=== PATIENT | male | born 1955 | race Caucasian/White ===

== ENCOUNTER 2022-01-24 12:12 | Emergency (ER) | payer OTHER, SELFPAY ==
[2022-01-24 12:13] VITALS: BP 160/97; PULSE 81; RESP 17; TEMP 36; O2SAT 99; BMI 27.7
[2022-01-24 13:18] LABS: Absolute Lymphocyte Count 0.87 X10^3/uL (0.83-4.51); Basophil# 0.03 X10^3/uL; Basophil% 0.3 % (0-1); Eosinophil# 0.05 X10^3/uL; Eosinophils% 0.5 % (0-5); Hemoglobin 15.7 g/dL (13.0-16.5); Lymphocyte # 0.87 X10^3/ul (0.83-4.51); Lymphocyte % 8.2 % (19-41); Mean Corp Hgb Conc 32.7 g/dL (32-36); Mean Corpuscular Hgb 29.7 pg (27.0-32.0); Mean Corpuscular Volume 90.9 fL (80-94); Monocyte% 5.7 % (0-10); NRBC Flagged by Analyzer 0 % (0-5); Neutrophil # 9.02 X10^3/uL (2.7-7.7); Neutrophil % 84.9 % (47-70); Platelet Count 163 K/mm3 (150-450); Red Blood Count 5.28 M/mm3 (4.6-6.2); White Blood Count 10.6 K/mm3 (4.4-11.0)
[2022-01-24 13:32] LABS: Anion Gap 4 (5-15); BUN 15 mg/dL (7-18); BUN/Creat Ratio 13.6 RATIO (10-20); Calcium,Total 9.1 mg/dL (8.5-10.1); Chloride 110 mmol/L (98-107); EST Glomerular Filtration Rate 71 mL/min (>60); Est Glom Filt Rate - Afr Amer 87 mL/min (>60); Estimated Creatinine Clearance 70.05 ml/min; Glucose 115 mg/dL (74-106); Sodium Level 141 mmol/L (136-145)
--- NOTE | 2022-01-24 14:15 | ED.VIS.GI ---
HPI HPI - GI History of Present Illness Chief Complaint: Abd Pain Informant: patient Abdominal Pain/Flank Pain Onset: Today Context: Sudden Onset Timing: Continuous Quality: Aching Location: LLQ Worsened by: Nothing Relieved by: Nothing Nausea/Vomiting/Emesis GI Symptom: Positive for Nausea and Vomiting Quality: Negative for Blood streaks, Coffee ground or Hematemesis Diarrhea/Melena/Hematochezia GI Symptom: Negative for Diarrhea, Melena or Hematochezia Associated Symptoms Associated Symptoms: Negative for Dysuria, Frequency or Hematuria Narrative Narrative: Patient presents with abdominal pain that began today. Patient states the pain is over the left side of his abdomen. Patient states it began rather suddenly. Patient describes the pain as aching. Patient states it is mainly over the left lower quadrant. Patient admits to some nausea and vomiting. Patient denies any hematemesis or coffee-ground emesis. Patient denies any diarrhea, melena, or hematochezia. Patient denies any dysuria, frequency, or hematuria. Patient states he has a history of inguinal hernias and has had bilateral inguinal herniorrhaphies. [facility] Medical History (Updated 01/24/22 @ 16:[address] Cedric Patino DO) TIA (transient ischemic attack) Home Medications hydrocodone-acetaminophen 5-325mg 5mg-325mg 1 tab PO Q6H PRN PRN Pain 3 days #10 TABLETS 01/24/22 [Rx Last Taken Unknown] Allergy/AdvReac Type Severity Reaction Status Date / Time No Known Allergies Allergy Verified 01/24/22 12:12 Surgical History (Updated 01/24/22 @ 14:[address] Cedric Patino DO) Hx of inguinal herniorrhaphy Social History Smoking Status: Never smoker ROS ROS ED Constitutional Constitutional ED: Denies chills or fever(s) Eyes Eyes: Denies blurry vision or change in vision ENT ENT ED: Denies rhinorrhea or sore throat Cardiovascular Cardiovascular: Denies chest pain or palpitations Respiratory/Chest Respiratory/Chest: Denies cough or dyspnea Gastrointestinal Gastrointestinal: Reports abdominal pain, nausea and vomiting Genitourinary Genitourinary ED: Denies dysuria or hematuria Musculoskeletal Musculoskeletal: Denies back pain or neck pain Integumentary Denies abscess or rash Neurologic Neurologic: Denies headache(s) or weakness Allergic/Immunologic Allergic/Immunologic ED: Denies mouth swelling or urticaria EXAM Physical Exam Const Vital Signs: 01/24/22 12:13 01/24/22 15:07 Temperature 96.8 F L Temperature Source Temporal Pulse Rate 81 88 Respiratory Rate 17 14 Blood Pressure 160/97 H 134/78 H Blood Pressure Mean 118 96 Pulse Ox 99 97 Oxygen Delivery Method Room Air Room Air Positive well nourished and well developed General Appearance ED: well developed HEENT Reports moist mucous membranes Neck supple and no JVD Resp normal respiratory effort and clear to auscultation bilaterally Cardio regular rate, regular rhythm and no murmurs GI normal to inspection, nondistended, normoactive bowel sounds Palpation: soft and tender LLQ and LUQ Back/Spine no CVA tenderness Extremity normal to inspection General Extremety ED: Negative for edema or tenderness General Extremity: Negative for edema Neuro oriented x3, CN's II-XII intact bilaterally and no sensory deficits noted Sensorium / Orientation: alert Motor Exam: strength 5/5 throughout Psych mental status grossly normal Skin no rashes or lesions noted MDM MDM MDM Narrative Medical decision making narrative: Patient was given IV fluids, morphine, and Zofran. CBC was within normal limits. Basic metabolic profile was essentially within normal limits. Urinalysis shows a leukocyte esterases of 25 with 10-25 red blood cells and 10-25 white blood cells. There is 1+ bacteria. Urine culture was ordered. CT scan of the abdomen pelvis was obtained. There is a 3.9 mm calculus at the ureteropelvic junction with left hydronephrosis. This was interpreted by the radiologist and reviewed by myself. Patient is feeling better on reevaluation. Patient was given a prescription for [place]. Patient was instructed to drink plenty of fluids. Patient was given urology follow-up. Patient was instructed return if worse in any way. Patient understood and was agreeable with the plan. All questions were answered. Lab Data Attestation: I reviewed the patient's lab results. Labs: Laboratory Results - last 24 hr 01/24/22 01/24/22 01/24/22 13:10 13:10 14:18 WBC 10.6 RBC 5.28 Hgb 15.7 Hct 48.0 MCV 90.9 MCH 29.7 MCHC 32.7 RDW Std Deviation 47.0 H RDW Coeff of [place] 14.0 Plt Count 163 MPV 11.0 Immature Gran % (Auto) 0.400 Neut % (Auto) 84.9 H Lymph % (Auto) 8.2 L [place] % (Auto) 5.7 Eos % (Auto) 0.5 Baso % (Auto) 0.3 Absolute Neuts (auto) 9.0 H Absolute Lymphs (auto) 0.87 Nucleated RBC % 0 Sodium 141 Potassium 4.0 Chloride 110 H Carbon Dioxide 27.0 Anion Gap 4 L BUN 15 Creatinine 1.10 Estim Creat Clear Calc 70.05 Est GFR (MDRD) Af Amer 87 Est GFR (MDRD) Non-Af 71 BUN/Creatinine Ratio 13.6 Glucose 115 H Calcium 9.1 Urine Color Yellow Urine Clarity Cloudy Urine pH 6.0 Ur Specific [place] 1.025 Urine Protein 100 H Urine Glucose (UA) Normal Urine Ketones 15 H Urine Occult Blood 250 H Urine Nitrite Negative Urine Bilirubin Negative Urine Urobilinogen Normal Ur Leukocyte Esterase 25 H Urine RBC 10-25 SEEN Urine WBC 10-25 SEEN Ur Squamous Epith Cells 0 SEEN Urine Bacteria 1+ Urine Mucus 0 SEEN Radiography Diagnostic Testing: Clinical Impression(s) from Imaging Studies Abdomen/Pelvis CT 01/24/22 14:19 IMPRESSION: Mild degree of left hydronephrosis due to a 3.9 mm calculus at the ureteropelvic junction. Left perinephric and periureteric stranding. Nonobstructive calculus in the left kidney. Electronically Signed: Mau Bautista MD at 15:15 EDT , Discharge Plan Triage Chief Complaint: Abd Pain ED Provider: Cedric Patino Dx/Rx/DC Orders Clinical Impression: Calculus of proximal left ureter, Acute left flank pain Instructions: ED Kidney Stone w/ Colic Prescriptions: New hydrocodone-acetaminophen [hydrocodone-acetaminophen] 1 TABLET tablet 1 tab PO Q6H PRN PRN (Reason: Pain) 3 Days Qty: 10 0RF Primary Care Provider: Fortino Kate Referrals: Torin Ortega MD [STAFF PHYSICIAN] - 3-5 Days Fortino Kate MD [Primary Care Provider] - 3-5 Days Disposition Disposition: Home, Self Care
--- NOTE | 2022-01-24 14:19 | CT_ITS ---
STUDY: CT ABDOMEN AND PELVIS WITHOUT CONTRAST REASON FOR EXAM: Male, 66 years old. Left lower quadrant pain with nausea and vomiting. RADIATION DOSAGE (If Supplied By Facility): CTDIvol = ( 9.45 ) mGy, DLP = ( 613.94 ) mGycm TECHNIQUE: Transaxial images were obtained from the dome of the diaphragm to the symphysis pubis without oral contrast, and without intravenous contrast. Sagittal and coronal images were reconstructed. Individualized dose optimization techniques were used for this CT. COMPARISON: None. FINDINGS: Minimal degree of dependent bibasilar atelectasis. The visualized portions of the heart are within normal limits. Normal liver. Normal gallbladder and extrahepatic biliary system. Normal spleen. Normal pancreas. Normal bilateral adrenal glands. Normal right kidney. There is engorgement of the left kidney. Mild degree of a left perinephric and periureteric stranding due to a 3.9 mm calculus at the ureteral pelvic junction. Mild degree of left hydronephrosis. There is also evidence of a 4.5 mm nonobstructive calculus in the midpole calyx of the left kidney. Normal visualized stomach. Normal small intestine. There are scattered colonic diverticula consistent with diverticulosis. The appendix is visualized and appears normal. There is diffuse atherosclerotic calcification of the abdominal aorta, without a demonstrated aneurysm. Normal inferior vena cava. Normal retroperitoneum. Normal urinary bladder. There is a right-sided inguinal hernia containing adipose tissue. There are mild degenerative changes of the visualized lumbar spine. CT/Abdomen/Pelvis without Cont IMPRESSION: Mild degree of left hydronephrosis due to a 3.9 mm calculus at the ureteropelvic junction. Left perinephric and periureteric stranding. Nonobstructive calculus in the left kidney. Electronically Signed: Mau Bautista MD at 15:15 EDT ,
[2022-01-24 14:23] LABS: Mucous, Urine 0 SEEN /hpf (<or=2+); Squamous Epithelial Cells - UA 0 SEEN /hpf (0-5)
[2022-01-24 14:24] LABS: Color, Urine Yellow (Yellow); Glucose, Dipstick Normal (Normal); Ketone-Dipstick 15 mg/dl (Negative); Leukocyte Esterase-Dipstick 25 /ul (Negative); Nitrite-Dipstick Negative (Negative); Occult Blood-Urine 250 /ul (Negative); Protein-Dipstick 100 mg/dl (Negative); Specific Gravity, Urine 1.025 (1.002-1.030); Urine Bilirubin Dipstick Negative (Negative); Urine Clarity Cloudy (Clear); Urine Urobilinogen Normal (Normal)
[2022-01-24] MEDS: Ondansetron 4 MG/2 ML Vial IV (14:25)
[2022-01-24] MEDS: 0.9% Normal Saline 1,000 ML 1000 ML IV (14:25)
[2022-01-24] MEDS: Morphine 4 MG/ML Syringe IV (14:26)
[2022-01-24 14:30] LABS: White Blood Cells 10-25 SEEN /hpf (0-5)
[2022-01-24 14:31] LABS: Bacteria 1+ /hpf (None Seen); Red Blood Cells-Urine 10-25 SEEN /hpf (0-5)
[2022-01-24 15:07] VITALS: BP 134/78; PULSE 88; RESP 14; O2SAT 97
[2022-01-24 16:30] VITALS: BP 124/78; PULSE 88; RESP 14; TEMP 37.2; O2SAT 100
== END 2022-01-24 16:33 | disposition home or self-care (01) ==
PROVIDERS: Emergency Provider Emergency Medicine; PCP Family Medicine; Visit Provider Emergency Medicine
DX: N13.2 Hydronephrosis with renal and ureteral calculous obstruction (principal); Z79.899 Other long term (current) drug therapy; Z86.73 Personal history of transient ischemic attack (TIA), and cerebral infarction without residual deficits
CPT/HCPCS: 74176; 80048; 81001; 85025; 96361; 96374; 96375; 99283; J7030; J2405

== ENCOUNTER 2022-01-28 12:55 | Emergency (ER) | payer OTHER, SELFPAY ==
[2022-01-28 12:56] VITALS: BP 164/87; PULSE 59; RESP 18; TEMP 36.7; O2SAT 95; BMI 27.8
--- NOTE | 2022-01-28 13:31 | EDS_ITS ---
HPI HPI - GI History of Present Illness Chief Complaint: Flank Pain Informant: patient Abdominal Pain/Flank Pain Onset: Days (4) Context: Sudden Onset Timing: Continuous and Waxes and wanes Quality: Aching Location: Left Flank Current Severity: Mild Maximum Severity: Severe Worsened by: Nothing Relieved by: Nothing Nausea/Vomiting/Emesis GI Symptom: Positive for Nausea; Negative for Vomiting Diarrhea/Melena/Hematochezia GI Symptom: Negative for Diarrhea, Melena or Hematochezia Associated Symptoms Associated Symptoms: Negative for Dysuria, Frequency, Hematuria or Urgency Narrative Narrative: Patient diagnosed with a kidney stone earlier this week, he was prescribed hydrocodone which is helping temporarily when he takes it, he still has some, he was given urology follow-up, he states he could not get in and he made an appointment with a [facility] urologist after the weekend on Monday, today is Monday, he is here because the pain is still present. He has no new symptoms. [facility] Medical History (Updated 01/28/22 @ 14:[address] Fabio Clements MD) TIA (transient ischemic attack) Home Medications hydrocodone-acetaminophen 5-325mg 5mg-325mg 1 tab PO Q6H PRN PRN Pain 3 days #10 TABLETS 01/28/22 [Rx Last Taken Unknown] ondansetron 4 mg disintegrating tablet 8 mg PO Q8H PRN PRN Nausea #20 tabs 01/28/22 [Rx Last Taken Unknown] tamsulosin 0.4 mg capsule (Flomax) 0.4 mg PO DAILY #7 caps 01/28/22 [Rx Last Taken Unknown] Allergy/AdvReac Type Severity Reaction Status Date / Time No Known Allergies Allergy Verified 01/28/22 12:55 Surgical History (Updated 01/24/22 @ 14:[address] Cedric Patino DO) Hx of inguinal herniorrhaphy Social History Smoking Status: Never smoker ROS ROS ED Constitutional Constitutional ED: Denies chills or fever(s) Eyes Eyes: Denies change in vision or diplopia ENT ENT ED: Denies rhinorrhea or sore throat Cardiovascular Cardiovascular: Denies chest pain or palpitations Respiratory/Chest Respiratory/Chest: Denies cough or dyspnea Gastrointestinal Gastrointestinal: Reports abdominal pain and nausea; Denies diarrhea or vomiting Genitourinary Genitourinary ED: Denies dysuria or hematuria Musculoskeletal Musculoskeletal: Reports back pain; Denies neck pain Integumentary Denies abscess or rash Neurologic Neurologic: Denies headache(s), paresthesias or weakness Psychiatric Psychiatric: Denies anxiety or suicidal thoughts EXAM Physical Exam Const Vital Signs: 01/28/22 12:56 Temperature 98.0 F Temperature Source Temporal Pulse Rate 59 L Respiratory Rate 18 Blood Pressure 164/87 H Blood Pressure Mean 112 Pulse Ox 95 Oxygen Delivery Method Room Air Positive well nourished and well developed General Appearance ED: well developed and NAD HEENT Reports moist mucous membranes normocephalic and atraumatic Eyes PERRL and EOMs intact bilaterally Neck full ROM and supple Resp normal respiratory effort and clear to auscultation bilaterally Cardio regular rate, regular rhythm and no murmurs GI non-tender and non-distended Auscultation: normoactive bowel sounds Palpation: soft Back/Spine General Back: CVA tenderness left (mild) and other FROM Extremity normal to inspection General Extremety ED: Negative for edema, pulses abnormal or tenderness General Extremity: Negative for edema or pulses abnormal Neuro oriented x3, CN's II-XII intact bilaterally and no sensory deficits noted Sensorium / Orientation: awake and alert Motor Exam: strength 5/5 throughout Skin no rashes or lesions noted and no wounds MDM MDM MDM Narrative Medical decision making narrative: She has a 3.9 mm UVJ stone on the left. There is a 4.5 nonobstructing stone in the left kidney. Expectant management is indicated as I discussed with the patient, along with symptom control until it passes which will likely be without the need for a procedure at this size. I am willing to start him on Flomax given that it is a UVJ stone to see if that helps sooner but as I discussed with him there is no guarantee. We checked a urine here and gave him pain medications. He feels much better on reevaluation, urine shows no signs of infection. We will also give him a refill of pain medication to fill when he is out, as well as something for nausea. Lab Data Attestation: I reviewed the patient's lab results. Labs: Laboratory Results - last 24 hr 01/28/22 13:50 Urine Color Yellow Urine Clarity Clear Urine pH 5.0 Ur Specific [place] 1.020 Urine Protein 30 H Urine Glucose (UA) Normal Urine Ketones 50 H Urine Occult Blood 250 H Urine Nitrite Negative Urine Bilirubin Negative Urine Urobilinogen Normal Ur Leukocyte Esterase 25 H Urine RBC 10-25 SEEN Urine WBC 0-5 SEEN Ur Squamous Epith Cells 0 SEEN Urine Bacteria 0 SEEN Urine Mucus 0 SEEN Discharge Plan Triage Chief Complaint: Flank Pain ED Provider: Fabio Clements Dx/Rx/DC Orders Clinical Impression: Renal colic on left side, Ureterolithiasis Instructions: ED Kidney Stone w/ Colic Prescriptions: New ondansetron [ondansetron] 4 mg tablet,disintegrating 8 mg PO Q8H PRN PRN (Reason: Nausea) Qty: 20 0RF tamsulosin [Flomax] 0.4 mg capsule 0.4 mg PO DAILY Qty: 7 0RF Continued hydrocodone-acetaminophen 1 TABLET tablet 1 tab PO Q6H PRN PRN (Reason: Pain) 3 Days Qty: 10 0RF Rx Instructions: from 01/24. Primary Care Provider: Fortino Kate Referrals: Fortino Kate MD [Primary Care Provider] - Keep Radha appointment (And/or your urologist) Activity Restrictions/Additional Instructions: Strain all of your urine. If you catch the stone, stop taking the Flomax. Disposition Disposition: Home, Self Care
[2022-01-28] MEDS: Ketorolac 15 MG/ML Vial IV (13:34)
[2022-01-28] MEDS: Morphine 4 MG/ML Syringe IV (13:35)
[2022-01-28 13:55] LABS: Bacteria 0 SEEN /hpf (None Seen); Mucous, Urine 0 SEEN /hpf (<or=2+); Squamous Epithelial Cells - UA 0 SEEN /hpf (0-5)
[2022-01-28 13:56] LABS: Color, Urine Yellow (Yellow); Glucose, Dipstick Normal (Normal); Ketone-Dipstick 50 mg/dl (Negative); Leukocyte Esterase-Dipstick 25 /ul (Negative); Nitrite-Dipstick Negative (Negative); Occult Blood-Urine 250 /ul (Negative); Protein-Dipstick 30 mg/dl (Negative); Urine Bilirubin Dipstick Negative (Negative); Urine Clarity Clear (Clear); Urine Urobilinogen Normal (Normal)
[2022-01-28 14:03] LABS: Red Blood Cells-Urine 10-25 SEEN /hpf (0-5); White Blood Cells 0-5 SEEN /hpf (0-5)
[2022-01-28 14:32] VITALS: RESP 16
== END 2022-01-28 14:48 | disposition home or self-care (01) ==
PROVIDERS: Emergency Provider Emergency Medicine; PCP Family Medicine; Visit Provider Emergency Medicine
DX: N20.2 Calculus of kidney with calculus of ureter (principal); Z86.73 Personal history of transient ischemic attack (TIA), and cerebral infarction without residual deficits
CPT/HCPCS: 81001; 96374; 96375; 99283; J7030; A4216

== ENCOUNTER 2023-09-16 14:30 | Emergency (ER) | payer MEDICARE, SELFPAY ==
[2023-09-16 14:32] VITALS: BP 152/94; PULSE 59; RESP 18; TEMP 35.7; O2SAT 94; BMI 27.6
--- NOTE | 2023-09-16 14:45 | ED.VIS.DYS ---
HPI History of Present Illness Chief Complaint: Shortness of Breath Detail of Chief Complaint: Abrupt onset of shortness of breath 2 hours prior to presentation Informant: patient and spouse/S.O. Onset/Context/Timing Onset: Hours (2) and Weeks (Intermittent productive cough for the past 3 weeks) Context: sudden Timing: Continuous Quality: Positive for Dyspnea on exertion and Wheezing; Negative for Orthopnea or PND Current Severity: Mild Maximum Severity: Moderate Worsened by: Exertion Relieved by: Nothing Associated Symptoms cough, rhinorrhea and clear sputum; Negative for post nasal drip, ear pain, fever, sore throat, subjective, chills or sweats Chest Pain: Positive for None Narrative Narrative: Patient is a 68-year-old male with benign hyper aplasia of the prostate on Flomax who presents with abrupt undershoot of shortness of breath started 2 hours prior to arrival. Patient had a cough for the past 3 weeks. The cough has been intermittently productive of clear sputum. He denies headache. He denies visual, ocular auditory symptoms. He denies fever or chills. He denies history of VTE. He has no risk factors for VTE. He denies leg pain, swelling or discoloration. He denies abdominal pain, nausea, vomiting or diarrhea. Patient is a smoker of 1 pack/day. He has no history of COPD. He is on Flomax otherwise on no other medication. He did not have history of asthma as a child. PE Risk Factors: Negative for Cancer, OCP + Smoking + > 35, Prior DVT or PE, Recent immobilization, Recent surgery or Recent travel Prior similar symptoms: No Recent Illness/Hospitalization: No [facility], [facility] Medical History TIA (transient ischemic attack) Home Medications aspirin 81 mg tablet,delayed release (Adult Aspirin Regimen) 81 mg PO DAILY 09/16/23 [History Last Taken Unknown] atorvastatin 80 mg tablet 80 mg PO DAILY 09/16/23 [History Last Taken Unknown] doxycycline monohydrate 100 mg capsule 100 mg PO BID #10 CAPSULES 09/16/23 [Rx Last Taken Unknown] prednisone 20 mg tablet 60 mg (3 x 20 mg) PO DAILY #12 TABLETS 09/16/23 [Rx Last Taken Unknown] Allergy/AdvReac Type Severity Reaction Status Date / Time No Known Allergies Allergy Verified 09/16/23 14:32 Surgical History Hx of inguinal herniorrhaphy Social History (Updated 09/16/23 @ 14:[address] Graham Alves MD) household members: spouse Smoking Status: Current every day smoker tobacco type: cigarettes substance use type: does not use ROS ROS ED Constitutional Constitutional ED: Denies chills, fever(s), sweats or weight loss Eyes Eyes: Denies blurry vision, change in vision or diplopia ENT ENT ED: Denies ear pain, rhinorrhea or sore throat Cardiovascular Cardiovascular: Denies chest pain, orthopnea, palpitations, paroxysmal nocturnal dyspnea or racing heartbeat Respiratory/Chest Respiratory/Chest: Reports cough, dyspnea, dyspnea on exertion and sputum; Denies orthopnea or paroxysmal nocturnal dyspnea Gastrointestinal Gastrointestinal: Denies abdominal pain, constipation, diarrhea, melena, nausea or vomiting Neurologic Neurologic: Denies headache(s), paresthesias or weakness Psychiatric Psychiatric: Denies anxiety Endocrine Endocrinology: Denies cold intolerance or heat intolerance Hematologic/Lymphatic Hematologic/Lymphatic: Denies easy bleeding or easy bruising EXAM Physical Exam Const Vital Signs: 09/16/23 14:32 09/16/23 15:13 09/16/23 15:15 Temperature 96.2 F L Temperature Source Temporal Pulse Rate 59 L 61 Respiratory Rate 18 18 Respiratory Effort Normal Non-Labored Respiratory Pattern Blood Pressure 152/94 H 143/79 H Blood Pressure Mean 113 100 Pulse Ox 94 93 Oxygen Delivery Method Room Air Room Air 09/16/23 15:28 09/16/23 15:56 Temperature Temperature Source Pulse Rate 57 L 65 Respiratory Rate 18 20 H Respiratory Effort Respiratory Pattern Normal Blood Pressure 131/71 H Blood Pressure Mean 91 Pulse Ox 92 Oxygen Delivery Method Room Air Positive well nourished and well developed General Appearance ED: well developed and NAD HEENT Reports moist mucous membranes HEENT Narrative: Head is atraumatic normocephalic. Ears normal. Nares patent. Posterior pharynx is normal. Eyes PERRL and EOMs intact bilaterally General Eye ED: Negative for pale conjunctiva or scleral icterus Neck no lymphadenopathy, supple, no meningeal signs and no JVD Resp normal respiratory effort and No clear to auscultation bilaterally Resp Narrative: Patient is tachypneic. He has expiratory wheezing noted throughout. Wheezes are high-pitched. He has increased expiratory phase. Cardio regular rate, regular rhythm, S1 normal heart sound, S2 normal heart sound and no murmurs GI non-tender, non-distended and no masses Extremity normal to inspection Extremity Narrative: There is no asymmetry, swelling, discoloration, leg vein distention, palpable cords or tenderness along the distribution of the deep venous system. Neuro oriented x3 and CN's II-XII intact bilaterally [place] Coma Scale: document GCS findings Spontaneous Obeys Commands Oriented 15 Sensorium / Orientation: alert Psych mental status grossly normal Skin no wounds and skin turgor normal Lesions: no lesions Rashes: no rashes MDM MDM MDM Narrative Medical decision making narrative: With patient have a productive cough off-and-on for the past 3 weeks and respiratory symptoms were obtain chest x-ray to assess for pneumonia. Since patient is wheezing has history of smoking he was treated with Atrovent and albuterol. He also received 60 mg of prednisone p.o. History & Record Review Additional record(s) reviewed:: Prior outpatient record and Prior labs Radiography Chest X-Ray - ED: 2 View and Read by ED Physician (Independent reviewed interpreted by me as negative for acute findings. There are some mild chronic pulmonary changes noted. Lung parenchyma reveals no infiltrate or effusion. There is no pneumothorax. Cardiac silhouette size normal. Perihilar region normal. Osseous structures unremarkable. Th) Diagnostic Testing: Clinical Impression(s) from Imaging Studies Chest X-Ray 09/16/23 14:59 IMPRESSION: There are findings consistent with COPD. There is no evidence of acute chest disease. Electronically Signed: Jj Carney MD at 15:15 EST , Treatment and Re-Evaluation :: Patient was reevaluated at 1604. Patient is moving more air. He has minimal wheezing at this time. Plan is metered-dose inhaler. Will have respiratory instruct him how to use the inhaler and burst of prednisone. Because patient had a cough for [address] on antibiotic for atypical coverage. Discharge Plan Triage Chief Complaint: Shortness of Breath ED Provider: Graham Alves Dx/Rx/DC Orders Clinical Impression: Acute bronchospasm, Acute exacerbation of chronic obstructive pulmonary disease, Bronchitis Instructions: ED Bronchitis with Wheezing (Adult) Prescriptions: New prednisone 20 mg tablet 60 mg PO DAILY Qty: 12 0RF doxycycline monohydrate 100 mg capsule 100 mg PO BID Qty: 10 0RF No Action atorvastatin 80 mg tablet 80 mg PO DAILY Patient Comments: TAKE 1 TABLET BY MOUTH EVERY DAY aspirin [Adult Aspirin Regimen] 81 mg tablet,delayed release (DR/EC) 81 mg PO DAILY Primary Care Provider: Fortino Kate Referrals: Fortino Kate MD [Primary Care Provider] - 3-5 Days Activity Restrictions/Additional Instructions: 2 puffs of inhaler every 2-4 hours while awake for the next 3 to 5 days and every 4-6 hours as needed for shortness of breath or wheezing Take prednisone until gone Disposition Disposition: Home, Self Care
[2023-09-16] MEDS: Ipratropium/Albuterol Sulfate 3 ML AMPUL.NEB INHALATION (14:50)
--- NOTE | 2023-09-16 14:59 | RAD_ITS ---
STUDY: X-RAY CHEST REASON FOR EXAM: Male, 68 years old. Productive cough and wheezing TECHNIQUE: Frontal and lateral views of the chest. COMPARISON: None. FINDINGS: There is hyperinflation of the lungs consistent with chronic obstructive lung disease (COPD). No infiltrates. No effusions. There is no demonstrated pleural abnormality. Normal size heart. Normal mediastinum and kelly. Normal visualized pulmonary arteries. Normal visualized aortic arch and descending thoracic aorta. There are diffuse degenerative changes of the visualized thoracic spine. Normal visualized ribs, clavicles, and shoulders. There is no demonstrated abnormality of the visualized soft tissue structures of the upper abdomen. RAD/Chest PA and Lateral IMPRESSION: There are findings consistent with COPD. There is no evidence of acute chest disease. Electronically Signed: Jj Carney MD at 15:15 EST ,
[2023-09-16] MEDS: predniSONE 20 MG Tablet 60 MG PO (15:12)
[2023-09-16 15:13] VITALS: BP 143/79; PULSE 61; RESP 18; O2SAT 93
[2023-09-16 15:28] VITALS: PULSE 57; RESP 18
[2023-09-16] MEDS: Albuterol 2.5 MG/3 ML VIAL.NEB. INHALATION ×3 (15:28)
[2023-09-16 15:56] VITALS: BP 131/71; PULSE 65; RESP 20; O2SAT 92
[2023-09-16 16:13] VITALS: BP 129/68; PULSE 85; RESP 22; TEMP 36.6; O2SAT 92
[2023-09-16] MEDS: Albuterol Sulfate 8 gm Inhaler (60 puffs) 4 PUFF INHALATION (16:14)
--- OUTSIDE RECORDS SUMMARY | 2023-09-16 16:25 | XMS RPT_ITS | CCD ---
Author Name Unknown Address [address] [place] [address] Organization [facility] Care Team Providers Care Flare Maker Name Role Phone Maik Lion Unavailable Unavailable Maik Lion Unavailable Unavailable No Doctor Assigned, Nodr Unavailable Unavail able Myesha Ramirez MD Primary Care Provider Myesha Ramirez MD Primary Care Provider Myesha Ramirez MD Primary Care Provider Myesha Ramirez MD Primary Care Provider MYESHA RAMIREZ Attending MYESHA Garcia Primary Care Unavailable MYESHA RAMIREZ Primary Care Unavailable MYESHA RAMIREZ Referring Unavailable MYESHA RAMIREZ Primary Care Unavailable MYESHA RAMIREZ Attending Unavailable MYESHA RAMIREZ Primary Care Unavailable ANGIE HOLTD SHEILA Referring Unavailable MYESHA RAMIREZ Primary Care Unavailable SLEJEROME, KHALED LITD Attending Unavailable STALIN KHALED OKSANAOUChaparro Referring Unavailable MYESHA RAMIREZ Attending Unavailable MYESHA RAMIREZ Primary Care Unavailable MYESHA RAMIREZ Primary Care Unavailable MARIZA IVERSON Referring Unavailable MYESHA RAMIREZ Primary Care Unavailable MYESHA RAMIREZ Referring Unavailable MARIZA IVERSON Attending Unavailable MYESHA RAMIREZ Primary Care Unavailable MYESHA RAMIREZ Referring Unavailable Medications Current Medications Medication Drug Class(es) Dates Sig (Normalized) Sig (Original) cephalexin 500 mg oral capsule (4 sources) Cephalosporin Antibacterial Start: 05-07-2022 End: 05-14-2022 take 1 capsule by mouth twice daily cephALEXin (KEFLEX) 500 mg capsule Take 1 capsule by mouth twice daily for 7 days. 14 capsule 0 05/07/2022 05/14/2022 Active Completed/Discontinued Medications Medication Drug Class(es) Dates Sig (Normalized) Sig (Original) aspirin 81 mg chewable tablet (20 sources) Platelet Aggregation Inhibitor, Nonsteroidal Anti-inflammatory Drug Start: 05-18-2020 take 1 tablet by mouth once daily aspirin 81 mg chewable tablet Take 1 tablet by mouth once daily. 30 tablet 3 05/18/2020 Active Problems Active Problems Problem Classification Problem Date Documented Date Episodic/Chronic Abdominal pain (4 sources) Flank pain; Translations: [Unspecified abdominal pain] Episodic Aortic; peripheral; and visceral artery aneurysms (20 sources) Aortic root dilatation; Translations: [Thoracic aortic ectasia] Onset: 03-08-2021 Chronic Calculus of urinary tract (2 sources) Kidney stone; Translations: [Calculus of kidney] Episodic Disorders of lipid metabolism (20 sources) Dyslipidemia; Translations: [Hyperlipidemia, unspecified] Onset: 03-08-2021 Chronic Essential hypertension (20 sources) Essential hypertension; Translations: [Essential (primary) hypertension] Onset: 05-16-2020 Chronic Genitourinary symptoms and ill-defined conditions (3 sources) Dysuria; Translations: [Dysuria] Episodic Other connective tissue disease (1 source) Pain of bilateral hands; Translations: [Pain in right hand] 04-14-2023 Episodic Other ear and sense organ disorders (20 sources) Sensorineural hearing loss, unilateral, left ear, with unrestricted hearing on the contralateral side; Translations: [Sensorineural hearing loss, unilateral] Onset: 11-20-2017 11-20-2017 Chronic Other eye disorders (20 sources) Bilateral vitreous floaters; Translations: [Other vitreous opacities, bilateral] Onset: 06-28-2021 06-28-2021 Chronic Other non-traumatic joint disorders (1 source) Hip pain; Translations: [Pain in unspecified hip] Episodic Other non-traumatic joint disorders (1 source) Joint pain; Translations: [Pain in unspecified joint] 03-29-2023 Episodic Residual codes; unclassified (20 sources) Family history of malignant neoplasm of gastrointestinal tract; Translations: [Family history of malignant neoplasm of digestive organs] 03-19-2013 Episodic Rheumatoid arthritis and related disease (3 sources) Bilateral rheumatoid arthritis of hands; Translations: [Rheumatoid arthritis with rheumatoid factor of right hand without organ or systems involvement] Onset: 04-14-2023 04-14-2023 Chronic Transient cerebral ischemia (20 sources) Transient cerebral ischemia; Translations: [Transient cerebral ischemic attack, unspecified] Onset: 05-15-2020 05-22-2020 Chronic Past or Other Problems Problem Classification Problem Date Documented Date Episodic/Chronic Abdominal hernia (20 sources) Bilateral inguinal hernia; Translations: [Bilateral inguinal hernia, without obstruction or gangrene, not specified as recurrent] Onset: 08-05-2013 08-05-2013 Episodic Other and unspecified benign neoplasm (20 sources) Benign neoplasm of colon; Translations: [Benign neoplasm of colon, unspecified] Onset: 05-23-2013 05-23-2013 Episodic Other connective tissue disease (13 sources) Weakness of left leg; Translations: [Other symptoms and signs involving the musculoskeletal system] Onset: 06-04-2020 06-04-2020 Episodic Other connective tissue disease (13 sources) Weakness of left arm; Translations: [Other symptoms and signs involving the musculoskeletal system] Onset: 06-05-2020 06-05-2020 Episodic Other connective tissue disease (18 sources) Other symptoms and signs involving the musculoskeletal system; Translations: [Other musculoskeletal symptoms referable to limbs] Onset: 06-04-2020 06-04-2020 Episodic Other connective tissue disease (1 source) Pain in right hand; Translations: [Bilateral hand pain] Onset: 04-14-2023 Episodic Other connective tissue disease (1 source) Pain in left hand; Translations: [Bilateral hand pain] Onset: 04-14-2023 Episodic Other eye disorders (20 sources) Corneal epithelial defect; Translations: [Unspecified corneal membrane change] Onset: 12-31-2019 12-31-2019 Episodic Other eye disorders (20 sources) Corneal scar; Translations: [Unspecified corneal scar and opacity] Onset: 06-28-2021 06-28-2021 Episodic Other injuries and conditions due to external causes (20 sources) Foreign body in right cornea; Translations: [Foreign body in cornea, right eye, initial encounter] Onset: 12-12-2019 05-22-2020 Episodic Other injuries and conditions due to external causes (7 sources) Retained foreign body in eye; Translations: [Foreign body on external eye, part unspecified, right eye, initial encounter] Onset: 12-31-2019 12-31-2019 Episodic Other injuries and conditions due to external causes (15 sources) Foreign body of eye region; Translations: [Foreign body on external eye, part unspecified, right eye, initial encounter] Onset: 12-31-2019 12-31-2019 Episodic Other nervous system disorders (20 sources) Incoordination; Translations: [Unspecified lack of coordination] Onset: 06-05-2020 06-05-2020 Episodic Other non-traumatic joint disorders (1 source) Pain in unspecified joint; Translations: [Arthralgia, unspecified joint] Onset: 12-20-2022 Episodic Other non-traumatic joint disorders (1 source) Pain in unspecified hip; Translations: [Hip pain] Onset: 10-11-2022 Episodic Other screening for suspected conditions (not mental disorders or infectious disease) (2 sources) Abnormal results of kidney function studies; Translations: [Nonspecific abnormal results of function study of kidney] Onset: 12-20-2022 Episodic Other skin disorders (20 sources) Skin lesion; Translations: [Disorder of the skin and subcutaneous tissue, unspecified] Onset: 08-05-2013 08-05-2013 Episodic Residual codes; unclassified (20 sources) Tobacco use and exposure - finding; Translations: [Tobacco use] Onset: 12-04-2015 05-15-2020 Episodic Residual codes; unclassified (20 sources) Activity of daily living (ADL) alteration; Translations: [Other specified health status] Onset: 06-05-2020 06-05-2020 Episodic Results Test Name Value Interpretation Reference Range Facil ity Vital Signs Date Time Vital Sign Value Performing Clinician Reina mcdonald 04-14-2023 11:47-0400 Diastolic blood pressure 87 mm[Hg] Mariza Iverson MD Work Phone: [facility] 04-14-2023 11:47-0400 Heart rate 63 /min Mariza Iverson MD Work Phone: [facility] 04-14-2023 11:47-0400 Systolic blood pressure 132 mm[Hg] Mariza Iverson MD Work Phone: [facility] 04-14-2023 11:45-0400 Body height 180.3 cm Mariza Iverson MD Work Phone: [facility] 04-14-2023 11:45-0400 Body temperature 97.59 [degF] Mariza Iverson MD Work Phone: [facility] 04-14-2023 11:45-0400 Body weight 88.91 kg Mariza Iverson MD Work Phone: [facility] 10-11-2022 08:32-0400 Body weight 89.63 kg Myesha Ramirez MD Work Phone: [facility] 10-11-2022 08:32-0400 Diastolic blood pressure 78 mm[Hg] Myesha Ramirez MD Work Phone: [facility] 10-11-2022 08:32-0400 Heart rate 68 /min Myesha Ramirez MD Work Phone: [facility] 10-11-2022 08:32-0400 Respiratory rate 16 /min Myesha Ramirez MD Work Phone: [facility] 10-11-2022 08:32-0400 Systolic blood pressure 140 mm[Hg] Myesha Ramirez MD Work Phone: [facility] 08-11-2022 09:26-0500 Body temperature 98.4 [degF] Tasha Diazlane COMPONENTS ENGINEER.MACHINE HAND Work Phone: [facility] 08-11-2022 09:26-0500 Body weight 88.31 kg Tasha Loja COMPONENTS ENGINEER.MACHINE HAND Work Phone: [facility] 08-11-2022 09:26-0500 Diastolic blood pressure 89 mm[Hg] Tasha Phuong COMPONENTS ENGINEER.MACHINE HAND Work Phone: [facility] 08-11-2022 09:26-0500 Heart rate 59 /min Tasha Phuong COMPONENTS ENGINEER.MACHINE HAND Work Phone: [facility] 08-11-2022 09:26-0500 Respiratory rate 20 /min Tsaha Diazlane COMPONENTS ENGINEER.MACHINE HAND Work Phone: [facility] 08-11-2022 09:26-0500 SaO2% (BldA) [Mass fraction] 97 % Tasha Loja COMPONENTS ENGINEER.MACHINE HAND Work Phone: [facility] 08-11-2022 09:26-0500 Systolic blood pressure 143 mm[Hg] Tashakat Loja COMPONENTS ENGINEER.MACHINE HAND Work Phone: [facility] 05-10-2022 08:02-0400 Body weight 88.45 kg Fernando Daniel COMPONENTS ENGINEER.MACHINE HAND Work Phone: [facility] 05-10-2022 08:02-0400 Diastolic blood pressure 83 mm[Hg] Fernando Daniel COMPONENTS ENGINEER.MACHINE HAND Work Phone: [facility] 05-10-2022 08:02-0400 Heart rate 61 /min Fernando Daniel COMPONENTS ENGINEER.MACHINE HAND Work Phone: [facility] 05-10-2022 08:02-0400 Respiratory rate 16 /min Fernando Daniel COMPONENTS ENGINEER.MACHINE HAND Work Phone: [facility] 05-10-2022 08:02-0400 Systolic blood pressure 134 mm[Hg] Fernando Daniel COMPONENTS ENGINEER.MACHINE HAND Work Phone: [facility] 05-07-2022 10:54-0400 Body temperature 97.81 [degF] Graciela Lazo COMPONENTS ENGINEER.MACHINE HAND Work Phone: [facility] 05-07-2022 10:54-0400 Body weight 88.63 kg Graciela Lazo COMPONENTS ENGINEER.MACHINE HAND Work Phone: [facility] 05-07-2022 10:54-0400 Diastolic blood pressure 88 mm[Hg] Graciela Lazo COMPONENTS ENGINEER.MACHINE HAND Work Phone: [facility] 05-07-2022 10:54-0400 Heart rate 71 /min Graciela Lazo COMPONENTS ENGINEER.MACHINE HAND Work Phone: [facility] 05-07-2022 10:54-0400 Respiratory rate 16 /min Graciela Lazo COMPONENTS ENGINEER.MACHINE HAND Work Phone: [facility] 05-07-2022 10:54-0400 SaO2% (BldA) [Mass fraction] 97 % Graciela Lazo COMPONENTS ENGINEER.MACHINE HAND Work Phone: [facility] 05-07-2022 10:54-0400 Systolic blood pressure 156 mm[Hg] Graciela Lazo COMPONENTS ENGINEER.MACHINE HAND Work Phone: [facility] 02-01-2022 09:35-0400 Body height 180.3 cm Eric Corbett PA-C Work Phone: [facility] 02-01-2022 09:35-0400 Body temperature 98.01 [degF] Eric Corbett PA-C Work Phone: [facility] 02-01-2022 09:35-0400 Body weight 86.64 kg Eric Corbett PA-C Work Phone: [facility] 02-01-2022 09:35-0400 Diastolic blood pressure 76 mm[Hg] Eric Corbett PA-C Work Phone: [facility] 02-01-2022 09:35-0400 Heart rate 66 /min Eric Corbett PA-C Work Phone: [facility] 02-01-2022 09:35-0400 Respiratory rate 14 /min Eric Corbett PA-C Work Phone: [facility] 02-01-2022 09:35-0400 SaO2% (BldA) [Mass fraction] 96 % Eric Corbett PA-C Work Phone: [facility] 02-01-2022 09:35-0400 Systolic blood pressure 140 mm[Hg] Eric Corbett PA-C Work Phone: [facility] 10-18-2021 07:07-0400 Diastolic blood pressure 82 mm[Hg] Fernnado Sanchez COMPONENTS ENGINEER.MACHINE HAND Work Phone: [facility] 10-18-2021 07:07-0400 Systolic blood pressure 136 mm[Hg] Fernanod Sanchez COMPONENTS ENGINEER.MACHINE HAND Work Phone: [facility] 10-18-2021 06:58-0400 Body temperature 97.5 [degF] Fernando Sanchez COMPONENTS ENGINEER.MACHINE HAND Work Phone: [facility] 10-18-2021 06:58-0400 Body weight 88.45 kg Fernando Sanchez COMPONENTS ENGINEER.MACHINE HAND Work Phone: [facility] 10-18-2021 06:58-0400 Heart rate 72 /min Fernando Sanchez COMPONENTS ENGINEER.MACHINE HAND Work Phone: [facility] 10-18-2021 06:58-0400 Respiratory rate 16 /min Fernando Sanchez COMPONENTS ENGINEER.MACHINE HAND Work Phone: [facility] Encounters Encounter Date Encounter Type Care Provider Facility Start: 06-27-2023 End: 06-27-2023 ambulatory MYESHA D [facility] Facility:[facility] Start: 04-17-2023 Telephone encounter Mariza bravo MD Work Phone: Rheumatology Procedures Date Procedure Procedure Detail Performing Clinician Start: 12-20-2022 Lipid 1996 panel - S eboni or Plasma Mariza Iverson MD Work Phone: Start: 05-07-2022 Urnls dip stick/tabl et rgnt auto w/o microscopy Graciela Lazo COMPONENTS ENGINEER.MACHINE HAND Work Phone: Start: 02-01-2022 Urnls dip stick/tabl et rgnt auto w/o microscopy Eric Corbett PA-C Work Phone: Start: 08-11-2021 Adult depression screening assessment Fernando Sanchez COMPONENTS ENGINEER.MACHINE HAND Work Phone: Start: 04-19-2021 Colonoscopy Fernando youssef COMPONENTS ENGINEER.MACHINE HAND Work Phone: Laboratory test resu lt abnormal Abnormal laboratory test Mariza Iverson MD Work Phone: Plan of Treatment Date Care Activity Detail Author Start: 12-20-2032 Urine microalbumin profile [facility] Start: 12-21-2027 Lipid 1996 panel - S eboni or Plasma Lipid Screening [facility] Start: 12-21-2027 LIPID SCREEN LIPID SCREEN [facility] Start: 12-21-2027 PROSTATE CANCER SCRE ENING DISCUSSION PROSTATE CANCER SCREENING DISCUSSION [facility] Start: 04-19-2026 Colonoscopy COLONOSCOPY [facility] Start: 04-19-2026 COLORECTAL CANCER SCREENING COLORECTAL CANCER SCREENING [facility] Start: 01-20-2026 LIPID SCREEN LIPID SCREEN [facility] Start: 12-20-2025 DIABETES SCREEN DIABETES SCREEN [facility] Start: 12-20-2025 Diabetes Screening Diabetes Screenin g [facility] Start: 10-03-2025 DIABETES SCREEN DIABETES SCREEN [facility] Start: 05-09-2025 DIABETES SCREEN DIABETES SCREEN [facility] Start: 05-07-2025 DIABETES SCREEN DIABETES SCREEN [facility] Start: 01-21-2024 DIABETES SCREEN DIABETES SCREEN [facility] Start: 12-21-2023 ANNUAL PCP TEAM FIELD SERVICER BRAD DISEASE VISIT ANNUAL PCP TEAM CHRONIC DISEASE VISIT [facility] Start: 12-21-2023 COVID-19 VACCINE (#1) COVID-19 VACCI NE (#1) [facility] Immunizations Immunization Date Immunization Notes Care Provider Fa cility 12-20-2022 pneumococcal (PCV20) vaccine, 20 valent (PREVNAR 20) Joyce Holt MD Work Phone: [facility] 12-20-2022 tetanus toxoid, redu tom diphtheria toxoid, and acellular pertussis vaccine, adsorbed Joyce Holt MD Work Phone: [facility] 05-22-2020 influenza, injectabl e, quadrivalent, contains preservative Fernando Daniel COMPONENTS ENGINEER.MACHINE HAND Work Phone: [facility] 05-22-2020 influenza virus vaccine, unspecified formulation Mariza Iverson MD Work Phone: [facility] 08-07-2009 tetanus toxoid, redu tom diphtheria toxoid, and acellular pertussis vaccine, adsorbed Fernando Daniel COMPONENTS ENGINEER.MACHINE HAND Work Phone: [facility] Work Phone: Payers Date Payer Category Payer Medicare [id number] 2022 Medicare [id number] 2019 Unknown MMO MMO [employer] [id number] 2019-Present [phone] [address] [place] [address] PPO [id number] 2019 Unknown MMO MMO [employer] [id number] 2019-Present [phone] [address] [place] [address] PPO [id number] 2018 Self-pay Self-pay [id number] Social History Date Type Detail Facility Start: 04-19-2021 End: 05-07-2022 Tobacco smoking status NHIS Smokes tobacco daily [facility] History of tobacco use Cigarette Smoker [facility] Work Phone: Start: 10-18-2021 End: 12-20-2022 Alcohol intake Current drinker of alcohol (finding) [facility] Start: 10-18-2021 End: 04-14-2023 Alcohol intake [facility] Work Phone: Start: 12-04-2015 History SDOH Alcohol Comment beer one a day 12 oz [facility] Start: 1955 Sex Assigned At Not on file C [facility] Start: 10-08-2021 End: 05-10-2022 Exposure to SARS-CoV-2 (event) Not sure [facility] Start: 04-19-2021 End: 05-07-2022 Tobacco use and exposure Former smokeless tobacco user [facility] Start: 12-20-2022 End: 04-14-2023 Tobacco use panel [facility] Work Phone: Adult Depression Screening Assessment 0 [facility] Work Phone: Medical Equipment Procedure Code Equipment Code Equipment Origin al Text Equipment Identifier Dates Mesh Srg Pariete x [id number] - [id number] Start: 08-21-2013 Clinical Notes 04-19-2021 to 06-27-2023 Telephone Encounter - Guerita Sams MA - 04/17/2023 1:32 PM EDTTelephone Encounter - Guerita Sams MA - 04/17/2023 1:21 PM EDTTelephone Encounter - Gelacio Reece - 04/14/2023 2:29 PM EDT Note Date & Type Note Facility 06-27-2023 Note HNO ID: [id number] Author: Myesha Ramirez MD Service: ? Author Type: Physician Type: Progress Notes Filed: 06/27/2023 11:57 AM Note Text: Chief Complaint Patient presents with: 6 Month Exam Immunizations: Flu vaccination HPI Joe Soler is a 68 year old male who presents here today for 6 month follow up. Still smoking. Denies any interest in quitting at this time. Has advanced directive. Denies any bowel, Gi, or urinary HTN: Does not check BP at home. Taking Lisinopril 20 mg daily. No chest pains, dizziness, or SOB. Lipid: Taking Lipitor 80 mg daily, tolerating well. Tries to watch diet, no exercise regimen but feels he is active enough. Joint Pain: Worse with colder weather, stiffness and sore. He did see Rheum last time but he really didn't follow up with them. Does not feel that his issues are bad enough that he would want to take any additional medication. He feels he just had a sciatica issues which did improve. No longer using Gabapentin or Mobic. Past medical history, appointments, medications, allergies reviewed. Previous Medical History PAST MEDICAL HISTORY Diagnosis Date Colon polyps Essential hypertension 05/16/2020 Family history of malignant neoplasm of gastrointestinal tract Stroke (HCC) 04/2020 Tobacco use Previous Surgical History PAST SURGICAL HISTORY Procedure Laterality Date COLONOSCOPY FLX DX W/COLLJ SPEC WHEN PFRMD 04/29/2013 Colonoscopy COLONOSCOPY FLX DX W/COLLJ SPEC WHEN PFRMD 12/17/2015 Colonoscopy COLONOSCOPY FLX DX W/COLLJ SPEC WHEN PFRMD 02/13/2017 Colonoscopy COLONOSCOPY FLX DX W/COLLJ SPEC WHEN PFRMD 04/19/2021 EYE SURGERY HX FRACTURE SURGERY HERNIA REPAIR HX LAPAROSCOPY SURG RPR INITIAL INGUINAL HERNIA 08/21/2013 BILAT RPR UMBILICAL HRNA 5 YRS/> REDUCIBLE 08/21/2013 SIGMOIDOSCOPY FLX DX W/COLLJ SPEC BR/WA IF PFRMD 06/12/2013 Sigmoidoscopy, flexible TONSILLECTOMY HX TONSILLECTOMY PRIMARY/SECONDARY Tonsillectomy Family History FAMILY HISTORY Problem Relation Age of Onset Cancer Mother lung Stroke Father Colon Cancer Father Diagnosed at 79 Cancer Sister pancreatic Diabetes Maternal Grandfather other (leukemia) Son ALL Patient Allergies ALLERGIES No Known Allergies Current Medications Current Outpatient Medications on File Prior to Visit Medication Sig gabapentin (NEURONTIN) 300 mg capsule Take 1 capsule by mouth three times daily as needed for up to 90 days. atorvastatin (LIPITOR) 80 mg tablet Take 1 tablet by mouth once daily. atorvastatin (LIPITOR) 80 mg tablet Take 1 tablet by mouth once daily. meloxicam (MOBIC) 15 mg tablet Take 1 tablet by mouth once daily. Take with food. OTC NUTRITIONAL SUPPLEMENT once daily. Joint health lisinopril (ZESTRIL, PRINIVIL) 20 mg tablet Take 1 tablet by mouth once daily. ibuprofen (MOTRIN ORAL) Take 200 mg by mouth every 6 hours as needed. aspirin 81 mg chewable tablet Take 1 tablet by mouth once daily. No current facility-administered medications on file prior to visit. Social History Social History Tobacco Use Smoking status: Every Day Packs/day: 0.50 Years: 45.00 Additional pack years: 0.00 Total pack years: 22.50 Types: Cigarettes Smokeless tobacco: Former Vaping Use Vaping Use: Never used Substance Use Topics Alcohol use: Yes Alcohol/week: 1.0 standard drink of alcohol Types: 1 Cans of beer per week Comment: beer one a day 12 oz Drug use: No EXAM: BP 128/80 Pulse 64 Resp 16 Wt 89 kg (196 lb 4.8 oz) BMI 27.38 kg/m? General Appearance: Well appearing, alert, in no acute distress, well-hydrated, well nourished.. Lungs: Lungs clear to auscultation. No wheezing, rhonchi, rales.. Heart: RRR without murmur, gallop, or rubs. No ectopy. Health Maintenance List BP Controlled (<130/80) Never done Shingrix Vaccine(1 of 2) Never done RSV Vaccine(1 - 1-dose 60+ series) Never done Advance Directive Discussion Never done Influenza Vaccine(1) due on 03/31/2023 Covid-19 Vaccine(1) due on 12/21/2023 Lung Cancer Screening due on 08/11/2023 Annual PCP Team Chronic Disease Visit due on 12/21/2023 Diabetes Screening due on 12/20/2025 Colorectal Cancer Screening due on 04/19/2026 Lipid Screening due on 12/21/2027 Prostate Cancer Screening Discussion due on 12/21/2027 DTaP,Tdap,Td Vaccine(3 - Td or Tdap) due on 12/20/2032 Abdominal Aortic Aneurysm Screening Completed Depression Assessment Completed Pneumococcal Vaccine: 65+ Completed Hepatitis C Screening Addressed Data reviewed None ASSESSMENT/PLAN: 1. Essential hypertension - ICD9: 401.9, ICD10: I10 (primary diagnosis) - Controlled - Continue current medications - Recommend home blood pressure monitoring, to bring results to next visit - Encouraged sodium restriction, DASH or Mediterranean diet - Recommend regular aerobic exercise - Discussed need for and benefit of weight loss. BMI 27.38 kg/(m2) 2. Need for influenz (more content not included)... [facility] 04-17-2023 Miscellaneous Notes Patient has been notified of message below and verbalized understanding. Guerita Sams MA ----- Message from Mariza Iverson MD sent at 04/17/2023 1:05 PM EDT ----- Please call patient and let him know that his blood test was negative for the other rheumatoid arthritis antibody. I still recommend x-rays followed by the ultrasounds to further evaluate his hand pain. Thanks! documented in this encounter [facility] 04-14-2023 Miscellaneous Notes Called patient on 04/14/23 at 2:29 pm to schedule their MSK US exam. PT declined the scheduled due to available locations. Visit Type: MSK SYN Visit Length: 45, 50 OR 60 MINUTES Order Name/Protocol: US HAND/WRIST SYNOVIAL SCREEN RT+LT Preferred Provider: N/A Comment: N/A Location: ANY FACILITY Slot held: N/A documented in this encounter [facility] 04-14-2023 Note HNO ID: [id number] Author: Mariza Iverson MD Service: ? Author Type: Physician Type: Progress Notes Filed: 04/14/2023 12:35 PM Note Text: Rheumatology CONSULTATION Date of Service: 04/14/2023 Patient: Joe Soler Medical Record: [id number] Primary Care Physician: Myesha Ramirez MD Last Rheumatology visit: None at [facility] Referring Provider: Myesha Ramirez [address] [place] [address] Chief Complaint: Patient presents with: New Patient Joe Soler is here today at request of Dr. Ramirez specifically for consultation of my opinion in regards to the chief complaint listed above. Correspondence will be shared today via the [facility] electronic health record or through regular mail, where applicable. HISTORY OF PRESENT ILLNESS Joe Soler is a 68 year old White male with a history of hypertension, hyperlipidemia, stroke, tobacco use who presents rheumatology clinic for evaluation of rheumatoid arthritis. Chart review reveals he saw his PCP in November of this year where he described pain in his left hip, buttock, neck pain, hands, arms, shoulders along with stiffness worse in the morning. Work-up was done which demonstrated ESR 16, CRP 2.5, RF 21, negative SONI. Rheumatology consult was thus placed. Today he presents to clinic with his Annabelle. He states he intermittently gets pain in his right buttock shooting into his leg and this happens on the left as well. It has gotten significantly better since he last saw his PCP. He intermittently gets pain in his shoulders worse when he sleeps on them. He notes rare aching in his hands mostly in his PIP joints rated as a 4 out of 10. He has morning stiffness and has to work his hands out and lasts until he gets going , it sounds like probably less than an hour. He does get tingling in his hands in the morning. He has tried gabapentin, meloxicam, Tylenol, ibuprofen with intermittent success, he is not exactly sure. He does take turmeric regularly. Rheumatologic review of systems notable for chronic cough which he attributes to active smoking. His fingertips turn white in the cold but no blue or red color changes. He otherwise denies fevers, night sweats, unintentional weight loss, history of uveitis, dry eye, dry mouth, sores in his nose or mouth, malar rash, photosensitivity, congestion, chest pain, shortness of breath, nausea, vomiting, abdominal pain, constipation, diarrhea, blood in his urine or stool, history of blood clots. Pain Evaluation Pain Evaluation 04/19/2021 04/19/2021 02/01/2022 05/10/2022 10/11/2022 Pain Score 0 0 4 1 0 Location - - Abdomen-Left Lower Quadrant Abdomen-Left Lower Quadrant Other: See Comment Location Comment - - - - bilateral hip Description - - Aching Aching;Cramping Aching;Dull;Sharp Duration (#) - - 8 4 2 Duration (Timeframe) - - Days Days Months Frequency - - Intermittent Intermittent Continuous Intervention - - Medication Medication Heat;Medication PATIENT-ENTERED DATA PROMIS Assessments PROMIS Assessments 06/05/2020 07/03/2020 08/11/2021 Physical Health Percentile 15 % - 53 % Mental Health Percentile 26 % - 43 % Pain Score 4 - 4 Fatigue Percentile 24 % 58 % - Physical Function Percentile 16 % 42 % - RAPID 3 Paredes Activities of Daily Living No Data Dress self? - Get in and out of bed? - Walk outdoors? - Wash and dry body? - Get in and out of car? - RAPID 3 Disease Activity Weighed Score Levels: 0 - 1: Near Remission 1.3 - 2.0: Low Severity 2.3 - 4.0: Moderate Severity 4.3 - 10.0: High Severity No flowsheet data found. REVIEW OF SYSTEMS Complete ROS (HEENT, respiratory, cardiology, GI, , skin, psych, hematology, endocrine, neuro, musculoskeletal) negativee except as noted in HPI. PAST MEDICAL HISTORY PAST MEDICAL HISTORY Diagnosis Date Colon polyps Essential hypertension 05/16/2020 Family history of malignant neoplasm of gastrointestinal tract Stroke (HCC) 04/2020 Tobacco use PAST SURGICAL HISTORY PAST SURGICAL HISTORY Procedure Laterality Date COLONOSCOPY FLX DX W/COLLJ SPEC WHEN PFRMD 04/29/2013 Colonoscopy COLONOSCOPY FLX DX W/COLLJ SPEC WHEN PFRMD 12/17/2015 Colonoscopy COLONOSCOPY FLX DX W/COLLJ SPEC WHEN PFRMD 02/13/2017 Colonoscopy COLONOSCOPY FLX DX W/COLLJ SPEC WHEN PFRMD 04/19/2021 EYE SURGERY HX FRACTURE SURGERY HERNIA REPAIR HX LAPAROSCOPY SURG RPR INITIAL INGUINAL HERNIA 08/21/2013 BILAT RPR UMBILICAL HRNA 5 YRS/> REDUCIBLE 08/21/2013 SIGMOIDOSCOPY FLX DX W/COLLJ SPEC BR/WA IF PFRMD 06/12/2013 Sigmoidoscopy, flexible TONSILLECTOMY HX TONSILLECTOMY PRIMARY/SECONDARY Tonsillectomy FAMILY HISTORY: Mother with rheumatoid arthritis Grandmother with unspecified arthritis No other known family history of autoimmune disease FAMILY HISTORY Problem Relation Age of Onset Cancer Mother lung Stroke Father Colon Cancer Father Diagnosed at 79 Cancer Sister panc (more content not included)... [facility] 04-14-2023 Instructions Mariza Iverson MD - 04/14/2023 12:18 PM EDT Blood test anytime, 1st floor today X rays anytime, 1st floor today Have the vest front presser schedule you for ultrasounds of your hands Keep on eye on your hand symptoms during the winter and send me a picture if they turn colors We will call you with results documented in this encounter [facility] 04-14-2023 History of Present illness Narrative Images from the original note were not included. Rheumatology CONSULTATION Date of Service: 04/14/2023 Patient: Joe Soler Medical Record: [id number] Primary Care Physician: Myesha Ramirez MD Last Rheumatology visit: None at [facility] Referring Provider: Myesha Raimrez [address] [place] [address] Chief Complaint: Patient presents with: New Patient Joe Soler is here today at request of Dr. Ramirez specifically for consultation of my opinion in regards to the chief complaint listed above. Correspondence will be shared today via the [facility] electronic health record or through regular mail, where applicable. HISTORY OF PRESENT ILLNESS Joe Soler is a 68 year old White male with a history of hypertension, hyperlipidemia, stroke, tobacco use who presents rheumatology clinic for evaluation of rheumatoid arthritis. Chart review reveals he saw his PCP in November of this year where he described pain in his left hip, buttock, neck pain, hands, arms, shoulders along with stiffness worse in the morning. Work-up was done which demonstrated ESR 16, CRP 2.5, RF 21, negative SONI. Rheumatology consult was thus placed. Today he presents to clinic with his Annabelle. He states he intermittently gets pain in his right buttock shooting into his leg and this happens on the left as well. It has gotten significantly better since he last saw his PCP. He intermittently gets pain in his shoulders worse when he sleeps on them. He notes rare aching in his hands mostly in his PIP joints rated as a 4 out of 10. He has morning stiffness and has to work his hands out and lasts until he gets going , it sounds like probably less than an hour. He does get tingling in his hands in the morning. He has tried gabapentin, meloxicam, Tylenol, ibuprofen with intermittent success, he is not exactly sure. He does take turmeric regularly. Rheumatologic review of systems notable for chronic cough which he attributes to active smoking. His fingertips turn white in the cold but no blue or red color changes. He otherwise denies fevers, night sweats, unintentional weight loss, history of uveitis, dry eye, dry mouth, sores in his nose or mouth, malar rash, photosensitivity, congestion, chest pain, shortness of breath, nausea, vomiting, abdominal pain, constipation, diarrhea, blood in his urine or stool, history of blood clots. Pain Evaluation Pain Evaluation 04/19/2021 04/19/2021 02/01/2022 05/10/2022 10/11/2022 Pain Score 0 0 4 1 0 Location - - Abdomen-Left Lower Quadrant Abdomen-Left Lower Quadrant Other: See Comment Location Comment - - - - bilateral hip Description - - Aching Aching;Cramping Aching;Dull;Sharp Duration (#) - - 8 4 2 Duration (Timeframe) - - Days Days Months Frequency - - Intermittent Intermittent Continuous Intervention - - Medication Medication Heat;Medication PATIENT-ENTERED DATA PROMIS Assessments PROMIS Assessments 06/05/2020 07/03/2020 08/11/2021 Physical Health Percentile 15 % - 53 % Mental Health Percentile 26 % - 43 % Pain Score 4 - 4 Fatigue Percentile 24 % 58 % - Physical Function Percentile 16 % 42 % - RAPID 3 Paredes Activities of Daily Living No Data Dress self? - Get in and out of bed? - Walk outdoors? - Wash and dry body? - Get in and out of car? - RAPID 3 Disease Activity Weighed Score Levels: 0 - 1: Near Remission 1.3 - 2.0: Low Severity 2.3 - 4.0: Moderate Severity 4.3 - 10.0: High Severity No flowsheet data found. REVIEW OF SYSTEMS Complete ROS (HEENT, respiratory, cardiology, GI, , skin, psych, hematology, endocrine, neuro, musculoskeletal) negativee except as noted in HPI. PAST MEDICAL HISTORY PAST MEDICAL HISTORY Diagnosis Date Colon polyps Essential hypertension 05/16/2020 Family history of malignant neoplasm of gastrointestinal tract Stroke (HCC) 04/2020 Tobacco use PAST SURGICAL HISTORY PAST SURGICAL HISTORY Procedure Laterality Date COLONOSCOPY FLX DX W/COLLJ SPEC WHEN PFRMD 04/29/2013 Colonoscopy COLONOSCOPY FLX DX W/COLLJ SPEC WHEN PFRMD 12/17/2015 Colonoscopy COLONOSCOPY FLX DX W/COLLJ SPEC WHEN PFRMD 02/13/2017 Colonoscopy COLONOSCOPY FLX DX W/COLLJ SPEC WHEN PFRMD 04/19/2021 EYE SURGERY HX FRACTURE SURGERY HERNIA REPAIR HX LAPAROSCOPY SURG RPR INITIAL INGUINAL HERNIA 08/21/2013 BILAT RPR UMBILICAL HRNA 5 YRS/> REDUCIBLE 08/21/2013 SIGMOIDOSCOPY FLX DX W/COLLJ SPEC BR/WA IF PFRMD 06/12/2013 Sigmoidoscopy, flexible TONSILLECTOMY HX TONSILLECTOMY PRIMARY/SECONDARY <AGE 12 Tonsillectomy FAMILY HISTORY: Mother with rheumatoid arthritis Grandmother with unspecified arthritis No other known family history of autoimmune disease FAMILY HISTORY Problem Relation Age of Onset Cancer Mother lung Stroke Father Colon Cancer Father Diagnosed at 79 Cancer Sister pancreatic Diabetes Maternal Grandfather other (leukemia) Son ALL SOCIAL HISTORY: Retired, worked in construction/bike mechanic 1 pack a day since age 22, [id number] 1-2 alcoholic beverages a night Takes turmeric Social History Tobacco Use Smoking status: Every Day Packs/day: 0.50 Years: 45.00 Additional pack years: 0.00 Total pack years: 22.50 Types: Cigarettes Smokeless tobacco: Former Vaping Use Vaping Use: Never used Substance Use Topics Alcohol use: Yes Alcohol/week: 1.0 standard drink of alcohol Types: 1 Cans of beer per week Comment: beer one a day 12 oz Drug use: No MEDICATIONS Current Outpatient Medications Medication Sig gabapentin (NEURONTIN) 300 mg capsule Take 1 capsule by mouth three times daily as needed for up to 90 days. atorvastatin (LIPITOR) 80 mg tablet Take 1 tablet by mouth once daily. atorvastatin (LIPITOR) 80 mg tablet Take 1 tablet by mouth once daily. meloxicam (MOBIC) 15 mg tablet Take 1 tablet by mouth once daily. Take with food. OTC NUTRITIONAL SUPPLEMENT once daily. Joint health lisinopril (ZESTRIL, PRINIVIL) 20 mg tablet Take 1 tablet by mouth once daily. ibuprofen (MOTRIN ORAL) Take 200 mg by mouth every 6 hours as needed. aspirin 81 mg chewable tablet Take 1 tablet by mouth once daily. ALLERGIES ALLERGIES No Known Allergies PHYSICAL EXAM VITAL SIGNS: BP 132/87 Pulse 63 Temp (Src) 97.6 (Temporal) Ht 5' 11 (1.80m) Wt 196 lb (88.9kg) BMI 27.35 kg/(m^2). GENERAL: Alert and oriented, appears stated age. In no acute distress. EYES: PERRL, EOMI, anicteric sclerae, no conjunctival injection HENT: Normal external examination of the ears and nose, lips, oropharynx and tongue. No oropharyngeal lesions or exudate. No oral or nasal sores. NECK: No mass or asymmetry. No lymphadenopathy RESPIRATORY: Normal respiratory effort. Clear to auscultation CARDIOVASCULAR: Regular in rate and rhythm with systolic murmur noted ABDOMEN: Soft, nontender, nondistended NEUROLOGIC: No gross focal neurologic deficits. Cranial nerves II-XII grossly intact. SKIN: No rash, thickening, nodules, discoloration. Normal nails. Normal nailfold capillaries. MSK: Normal range of motion, no deformities, no swelling, and no tenderness in the hands, wrists, elbows, shoulders, spine, hips, knees, ankles, feet except as noted below: Tenderness as below, slight fullness to right second MCP No chronic deformities suggestive of erosive disease Heberden's nodes bilaterally Joint Exam 04/14/2023 Right Left MCP 2 Swollen PIP 4 Tender Tender Tarsometatarsal Tender The following joints were examined and normal: Left Sternoclavicular, Right Sternoclavicular, Left Acromioclavicular, Right Acromioclavicular, Left Glenohumeral, Right Glenohumeral, Left Elbow, Right Elbow, Left Wrist, Right Wrist, Left MCP 1, Right MCP 1, Left MCP 2, Left MCP 3, Right MCP 3, Left MCP 4, Right MCP 4, Left MCP 5, Right MCP 5, Left IP, Right IP, Left PIP 2, Right PIP 2, Left PIP 3, Right PIP 3, Left PIP 5, Right PIP 5, Left DIP 2, Right DIP 2, Left DIP 3, Right DIP 3, Left DIP 4, Right DIP 4, Left DIP 5, Right DIP 5, Cervical Spine, Thoracic Spine, Lumbar Spine, Left Sacroiliac, Right Sacroiliac, Left Knee, Right Knee, Left Ankle, Right Ankle, Left Tarsometatarsal, Left MTP 1, Right MTP 1, Left MTP 2, Right MTP 2, Left MTP 3, Right MTP 3, Left MTP 4, Right MTP 4, Left MTP 5, Right MTP 5 Joint Exam Data (across time) Joint Exam 04/14/2023 Total Tender 2 Total Swollen 1 LABS Reviewed in [facility], notable for: 12/20/2022: ESR 16 CRP 2.5 RF 21 Negative SONI Normal CBC with differential Normal CMP, GFR 82 CBC Latest Ref Rng & Units 08/15/2013 05/07/2022 10/03/2022 12/20/2022 WBC 3.70 - 11.00 k/uL 4.60 8.76 8.61 8.26 HEMOGLOBIN 13.0 - 17.0 g/dL 14.7 14.5 13.3 13.3 HEMOGLOBIN, KURTIS 14.0 - 18.0 g/dL - - - - HEMATOCRIT 39.0 - 51.0 % 45.7 44.7 40.3 43.4 PLATELETS 150 - 400 k/uL 166 198 228 227 ABS NEUT (ANC) 1.45 - 7.50 k/uL 2.61 6.26 - 6.09 ABS LYMPH 1.00 - 4.00 k/uL 1.30 1.14 - 1.26 CMP Latest Ref Rng & Units 05/07/2022 05/09/2022 10/03/2022 12/20/2022 SODIUM 136 - 144 mmol/L 140 140 138 141 SODIUM, KURTIS 136 - 145 mmol/L - - - - SODIUM, KURTIS 136 - 145 mmol/L - - - - POTASSIUM 3.7 - 5.1 mmol/L 4.7 4.2 4.0 5.0 POTASSIUM, KURTIS 3.5 - 5.1 mmol/L - - - - CHLORIDE 97 - 105 mmol/L 105 106(H) 105 104 CHLORIDE, KURTIS 98 - 107 mmol/L - - - - CO2 22 - 30 mmol/L 25 27 25 25 CO2, KURTIS 21.0 - 32.0 mmol/L - - - - GLUCOSE 74 - 99 mg/dL 93 112(H) 96 101(H) GLUCOSE, KURTIS 70 - 99 mg/dL - - - - BUN 9 - 24 mg/dL 22 19 16 18 BUN, KURTIS 7 - 18 mg/dL - - - - CREATININE 0.73 - 1.22 mg/dL 1.50(H) 1.30(H) 1.02 1.02 CREATININE, KURTIS 0.7 - 1.4 mg/dL - - - - CALCIUM, KURTIS 8.5 - 10.1 mg/dL - - - - CALCIUM, TOTAL 8.5 - 10.2 mg/dL 9.5 9.3 9.4 10.0 AST 14 - 40 U/L 26 - 13(L) 21 AST, KURTIS 15 - 37 U/L - - - - ALT 10 - 54 U/L 20 - 11 17 ALT, KURTIS 30 - 65 U/L - - - - ALKALINE PHOSPHATASE 38 - 113 U/L 74 - 72 72 ESR, WSR Latest Ref Rng & Units 12/20/2022 WSR 0 - 15 mm/hr 16(H) CRP Latest Ref Rng & Units 12/20/2022 CRP <0.9 mg/dL 2.5(H) RF and CCP Latest Ref Rng & Units 12/20/2022 RHEUMATOID FACTOR <16 IU/mL 21(H) Antibodies Latest Ref Rng & Units 12/20/2022 SONI Negative Negative Urinalysis Latest Ref Rng & Units 09/27/2017 09/04/2021 02/01/2022 05/07/2022 PROTEIN, URINE Neg mg/dL 30 - - - PROTEIN UA (POCT) Negative mg/dL - >=300(A) 30(A) 30(A) IMAGING Reviewed in Epic, notable for: Pending from today ASSESSMENT Joe Soler is a 68 year old White male with a history of hypertension, hyperlipidemia, stroke, tobacco use who presents rheumatology clinic for evaluation of rheumatoid arthritis. Today he is presenting with family history of rheumatoid arthritis, low positive RF in the setting of mixed mechanical inflammatory hand pain. Unfortunately he is a poor historian and potentially minimizing his symptoms. We will assess with labs to get CCP antibody, x-rays, and synovial screen ultrasounds of the hands. He is agreeable, he may want to skip the x-rays. Because his symptoms do not bother him too much he does not want to start any medication unless if he truly has a diagnosis. He does have osteoarthritis in his hands as noted by Hecherelle's nodes. We briefly discussed hydroxychloroquine but he is not interested in medications. He may be having Raynaud's with color changes in the cold, he will take a picture and send it to me next time it happens. No other signs or symptoms of systemic rheumatologic disease such as lupus or scleroderma. IMPRESSIONS Diagnoses: (R89.9) Abnormal laboratory test (primary encounter diagnosis) (M05.741, M05.742) Rheumatoid arthritis involving both hands with positive rheumatoid factor (HCC) (M79.641, M79.642) Bilateral hand pain PLAN 1. CCP antibody anytime 2. Hand x-rays anytime 3. Synovial screen ultrasounds anytime 4. Okay to continue current pain regimen per PCP 5. We will call him with results Orders this visit: Office Visit on 04/14/23 US HAND/WRIST SYNOVIAL SCREEN RIGHT US HAND/WRIST SYNOVIAL SCREEN LEFT XR HAND GENERAL 3V PA/LAT/OBL BILATERAL CCP ANTIBODY IGG CONSULT TO RHEUM/IMMUN DISEASE Return if symptoms worsen or fail to improve. I spent a total of 41 minutes on the date of the service which included preparing to see the patient, [id number] patient care, completing clinical documentation, obtaining and/or reviewing separately obtained history, performing a medically appropriate examination, counseling and educating the patient/family/caregiver, and ordering medications, tests, or procedures. This note was partially generated with the assistance of kontoblick voice recognition software. An attempt was made to correct any dictation errors however there may be some incorrect words, spellings, and punctuation. Mariza Iverson MD Rheumatology Date: April 14, 2023 Time: 12:00 PM documented in this encounter [facility] 03-30-2023 Miscellaneous Notes The following approved medication requests have been transmitted electronically. Requested Prescriptions Pending Prescriptions Disp Refills gabapentin (NEURONTIN) 300 mg capsule 90 capsule 2 Sig: Take 1 capsule by mouth three times daily as needed for up to 90 days. Kiley Main APRN.MACHINE HAND Pharmacy verified in [facility] Patient has been identified by name and date of : Yes Patient aware RX will be sent to pharmacy. No need to notify patient. Spouse phones for refill(s): Requested Prescriptions Pending Prescriptions Disp Refills gabapentin (NEURONTIN) 300 mg capsule 60 capsule 2 Sig: Take 1 capsule by mouth three times daily as needed for up to 60 days. Date of last office visit : 12/20/2022 Labs-12/20/22 Date of next office visit : 06/27/2023 Last 2 Encounter Wt Readings: Date: Wt: 12/20/2022 88.8 kg (195 lb 11.2 oz) 10/11/2022 89.6 kg (197 lb 9.6 oz) Not applicable Please advise. Mariza Vazquez Pss documented in this encounter [facility] 01-17-2023 Miscellaneous Notes Patient phones requesting refills as follows: Requested Prescriptions Pending Prescriptions Disp Refills atorvastatin (LIPITOR) 80 mg tablet 14 tablet 0 Sig: Take 1 tablet by mouth once daily. atorvastatin (LIPITOR) 80 mg tablet 90 tablet 3 Sig: Take 1 tablet by mouth once daily. Please review and advise. Kat Gonzalez documented in this encounter [facility] 12-20-2022 Note HNO ID: [id number] Author: Myesha Ramirez MD Service: ? Author Type: Physician Type: Progress Notes Filed: 12/20/2022 10:31 AM Note Text: Chief Complaint Patient presents with: Medication Follow-up HPI Joe Soler is a 67 year old male who presents here today for a follow up visit. Pt here today today for a follow up. Unsure if he has an advanced directive. HM: depression screening; denies feeling depressed or hopeless. Depression screening tool completed and reviewed. Based on score and interview, patient is not at risk for depression. Screening tool discussed with patient, and I recommended no further intervention at this time Discussed Shingles vaccine. Smokes half ppd. Not interested in quitting at this time Pain: left hip and buttock; dull ache, at times on both sides. The pain will occ go down into the back of the leg and into the calf. Worse after riding mower. Was seen in September for hip pain. Was started on Mobic 15 mg once daily but doesn't think it is helping. Uses Ibuprofen as needed, thinks Codie Back and Body helps better. Arthritis: Neck pain and stiffness, stevie hand and arm pain, shoulders, stiffness. Right side worse than other, is right hand dominant. Worse in the AM. Difficulty to move, it does get better the more he moves around. No bowel, gi, or urinary. Hx of renal calculi. HTN: Does not check BP at home. Denies any chest pain, sob or dizziness. Currently taking Lisinopril 20 mg once daily. Lipids: Currently taking Lipitor 80 mg once daily. Thinks he gets enough exercise but denies any regular exercise regimen. Tries to watch diet. Past medical history, appointments, medications, allergies reviewed. Previous Medical History PAST MEDICAL HISTORY Diagnosis Date Colon polyps Essential hypertension 05/16/2020 Family history of malignant neoplasm of gastrointestinal tract Stroke (HCC) 04/2020 Tobacco use Previous Surgical History PAST SURGICAL HISTORY Procedure Laterality Date COLONOSCOPY FLX DX W/COLLJ SPEC WHEN PFRMD 04/29/2013 Colonoscopy COLONOSCOPY FLX DX W/COLLJ SPEC WHEN PFRMD 12/17/2015 Colonoscopy COLONOSCOPY FLX DX W/COLLJ SPEC WHEN PFRMD 02/13/2017 Colonoscopy COLONOSCOPY FLX DX W/COLLJ SPEC WHEN PFRMD 04/19/2021 EYE SURGERY HX FRACTURE SURGERY HERNIA REPAIR HX LAPAROSCOPY SURG RPR INITIAL INGUINAL HERNIA 08/21/2013 BILAT RPR UMBILICAL HRNA 5 YRS/> REDUCIBLE 08/21/2013 SIGMOIDOSCOPY FLX DX W/COLLJ SPEC BR/WA IF PFRMD 06/12/2013 Sigmoidoscopy, flexible TONSILLECTOMY HX TONSILLECTOMY PRIMARY/SECONDARY Tonsillectomy Family History FAMILY HISTORY Problem Relation Age of Onset Cancer Mother lung Stroke Father Colon Cancer Father Diagnosed at 79 Cancer Sister pancreatic Diabetes Maternal Grandfather other (leukemia) Son ALL Patient Allergies ALLERGIES No Known Allergies Current Medications Current Outpatient Medications on File Prior to Visit Medication Sig meloxicam (MOBIC) 15 mg tablet Take 1 tablet by mouth once daily. Take with food. OTC NUTRITIONAL SUPPLEMENT once daily. Joint health lisinopril (ZESTRIL, PRINIVIL) 20 mg tablet Take 1 tablet by mouth once daily. atorvastatin (LIPITOR) 80 mg tablet Take 1 tablet by mouth once daily. ibuprofen (MOTRIN ORAL) Take 200 mg by mouth every 6 hours as needed. aspirin 81 mg chewable tablet Take 1 tablet by mouth once daily. No current facility-administered medications on file prior to visit. Social History Social History Tobacco Use Smoking status: Every Day Packs/day: 0.50 Years: 45.00 Pack years: 22.50 Types: Cigarettes Smokeless tobacco: Former Vaping Use Vaping Use: Never used Substance Use Topics Alcohol use: Yes Alcohol/week: 1.0 standard drink Types: 1 Cans of beer per week Comment: beer one a day 12 oz Drug use: No EXAM: BP 140/82 Pulse 74 Resp 16 Wt 88.8 kg (195 lb 11.2 oz) BMI 27.29 kg/m? General Appearance: Well appearing, alert, in no acute distress, well-hydrated, well nourished.. Lungs: Lungs clear to auscultation. No wheezing, rhonchi, rales.. Heart: RRR without murmur, gallop, or rubs. No ectopy. Extremities: Stevie hands, no swelling, no pain on palpation. Indicates pain in wrist joints and 1st MCP joints. Health Maintenance List ABDOMINAL AORTIC ANEURYSM SCREENING Never done COVID-19 VACCINE(1) Never done PNEUMOCOCCAL: 65+(1 - PCV) Never done BP CONTROLLED (<130/80) Never done SHINGRIX VACCINE(1 of 2) Never done PROSTATE CANCER SCREENING DISCUSSION due on 02/20/2015 DTAP,TDAP,TD(2 - Td or Tdap) due on 08/07/2019 ADVANCE DIRECTIVE DISCUSSION Never done DEPRESSION ASSESSMENT Never done INFLUENZA(Season Ended) due on 03/31/2023 LUNG CANCER SCREENING due on 08/11/2023 ANNUAL PCP TEAM CHRONIC DISEASE VISIT due on 10/12/2023 DIABETES SCREEN due on 10/03/2025 LIPID SCREEN due on 01/20/2026 COLORECTAL CANCER SCREENING due on 04/19/2026 HEPATITIS C SCREENING Ad (more content not included)... [facility] 10-14-2022 Miscellaneous Notes Patient returned call and went over results, notes from Niurka Sanchez DIRECTOR OF REHABILITATION with understanding. TC to pt. LM to call office, ask for triage nurse to get results. Berna Navarro LPN Please let the patient know that the xray of his hips shows findings consistent with arthritis and degenerative changes in the hip spacing. He may continue with use of meloxicam as prescribed by Dr. Ramirez. Please have the patient let us know if he re-considers wanting to pursue PHYSICAL THERAPY. If the meloxicam is not helping after a few weeks, we can get him to orthopedics for a second opinion. Fernando Sanchez APRN.ANUSHKA documented in this encounter [facility] 10-11-2022 Note HNO ID: [id number] Author: RT Janene(R) Service: ? Author Type: Inside Sales Account Executive Type: Progress Notes Filed: 10/11/2022 9:17 AM Note Text: Radiology Service Progress Note PATIENT NAME: Joe Soler DATE OF SERVICE: October 11, 2022 TIME: 8:56 AM PATIENT IDENTITY VERIFICATION COMPLETED USING TWO (2) IDENTIFIERS: Name and Date of confirmed by patient verbally. FALL SCREENING: Has the patient had 2 falls in the last year or 1 fall with injury or currently using an Ambulatory Assistive Device (Walker, Cane, Wheelchair, Crutches, etc.)? No PATIENT GENDER DATA: Male PATIENT RELEVANT IMPLANT DATA REVIEWED: Yes RADIOLOGY DEPARTMENT: General X-ray: Exam(s) Completed: Pelvis X-Ray: Pelvis with Hip Bilateral PERIPHERAL IV DATA: Not applicable SIGNED BY: RT Janene(R) October 11, 2022 8:56 AM [facility] 10-11-2022 Note HNO ID: [id number] Author: Myesha Ramirez MD Service: ? Author Type: Physician Type: Progress Notes Filed: 10/11/2022 2:39 PM Note Text: Chief Complaint Patient presents with: Hip Pain HPI Joe Soler is a 67 year old male who presents here today for pain. Pt c/o bilateral hip pain constant x 2 months, sharp, dull, ache, limited ROM, muscle weakness. Pain lateral hips and around to groin. Worse in the morning, at times will improve through the day. No pain with laying on his side. He has used hot showers and taken Back and Body Pain relievers OCT. He also uses Aspirin daily, an OTC joint health supplement and Ibuprofen prn. Rated pain 0/10 just sitting. No apparent injury. Past medical history, appointments, medications, allergies reviewed. Previous Medical History PAST MEDICAL HISTORY Diagnosis Date Colon polyps Essential hypertension 05/16/2020 Family history of malignant neoplasm of gastrointestinal tract Stroke (HCC) 04/2020 Tobacco use Previous Surgical History PAST SURGICAL HISTORY Procedure Laterality Date COLONOSCOPY FLX DX W/COLLJ SPEC WHEN PFRMD 04/29/2013 Colonoscopy COLONOSCOPY FLX DX W/COLLJ SPEC WHEN PFRMD 12/17/2015 Colonoscopy COLONOSCOPY FLX DX W/COLLJ SPEC WHEN PFRMD 02/13/2017 Colonoscopy COLONOSCOPY FLX DX W/COLLJ SPEC WHEN PFRMD 04/19/2021 EYE SURGERY HX FRACTURE SURGERY HERNIA REPAIR HX LAPAROSCOPY SURG RPR INITIAL INGUINAL HERNIA 08/21/2013 BILAT RPR UMBILICAL HRNA 5 YRS/> REDUCIBLE 08/21/2013 SIGMOIDOSCOPY FLX DX W/COLLJ SPEC BR/WA IF PFRMD 06/12/2013 Sigmoidoscopy, flexible TONSILLECTOMY HX TONSILLECTOMY PRIMARY/SECONDARY Tonsillectomy Family History FAMILY HISTORY Problem Relation Age of Onset Cancer Mother lung Stroke Father Colon Cancer Father Diagnosed at 79 Cancer Sister pancreatic Diabetes Maternal Grandfather other (leukemia) Son ALL Patient Allergies ALLERGIES No Known Allergies Current Medications Current Outpatient Medications on File Prior to Visit Medication Sig OTC NUTRITIONAL SUPPLEMENT once daily. [employer] [facility] lisinopril (ZESTRIL, PRINIVIL) 20 mg tablet Take 1 tablet by mouth once daily. atorvastatin (LIPITOR) 80 mg tablet Take 1 tablet by mouth once daily. tamsulosin (FLOMAX) 0.4 mg TAKE 1 CAPSULE BY MOUTH EVERYDAY AT BEDTIME (Patient not taking: Reported on 10/03/2022) ibuprofen (MOTRIN ORAL) Take 200 mg by mouth every 6 hours as needed. aspirin 81 mg chewable tablet Take 1 tablet by mouth once daily. No current facility-administered medications on file prior to visit. Social History Social History Tobacco Use Smoking status: Every Day Packs/day: 0.50 Years: 45.00 Pack years: 22.50 Types: Cigarettes Smokeless tobacco: Former Vaping Use Vaping Use: Never used Substance Use Topics Alcohol use: Yes Alcohol/week: 1.0 standard drink Types: 1 Cans of beer per week Comment: beer one a day 12 oz Drug use: No EXAM: BP 140/78 Pulse 68 Resp 16 Wt 89.6 kg (197 lb 9.6 oz) BMI 27.56 kg/m? General Appearance: Well appearing, alert, in no acute distress, well-hydrated, well nourished. and athritic changes in hands noted. Hips: decrased ext rotation stevie; mild tenderness right posterior hip. Health Maintenance List ABDOMINAL AORTIC ANEURYSM SCREENING Never done COVID-19 VACCINE(1) Never done PNEUMOCOCCAL: 65+(1 - PCV) Never done SHINGRIX VACCINE(1 of 2) Never done PROSTATE CANCER SCREENING DISCUSSION due on 02/20/2015 DTAP,TDAP,TD(2 - Td or Tdap) due on 08/07/2019 INFLUENZA(1) due on 03/31/2022 ADVANCE DIRECTIVE DISCUSSION Never done DEPRESSION ASSESSMENT Never done ANNUAL PCP TEAM CHRONIC DISEASE VISIT due on 05/10/2023 LUNG CANCER SCREENING due on 08/11/2023 BP CONTROLLED (<130/80) due on 10/04/2023 DIABETES SCREEN due on 10/03/2025 LIPID SCREEN due on 01/20/2026 COLORECTAL CANCER SCREENING due on 04/19/2026 HEPATITIS C SCREENING Addressed HIV SCREENING Discontinued Data reviewed Appointment on 10/03/2022 Component Date Value Protein, Total 10/03/2022 6.7 Albumin 10/03/2022 3.9 Calcium, Total 10/03/2022 9.4 Bilirubin, Total 10/03/2022 0.2 Alkaline Phosphatase 10/03/2022 72 AST 10/03/2022 13 (A) ALT 10/03/2022 11 Glucose 10/03/2022 96 BUN 10/03/2022 16 Creatinine 10/03/2022 1.02 Sodium 10/03/2022 138 Potassium 10/03/2022 4.0 Chloride 10/03/2022 105 CO2 10/03/2022 25 Anion Gap 10/03/2022 8 (A) Estimated Glomerular Richard* 10/03/2022 82 WBC 10/03/2022 8.61 RBC 10/03/2022 4.65 Hemoglobin 10/03/2022 13.3 Hematocrit 10/03/2022 40.3 MCV 10/03/2022 86.7 MCH 10/03/2022 28.6 MCHC 10/03/2022 33.0 RDW-CV 10/03/2022 12.9 Platelet Count 10/03/2022 228 MPV 10/03/2022 10.3 Absolute nRBC 10/03/2022 <0.01 Results Only on 10/03/2022 Component Date Value Ventricular Rate 10/03/2022 69 Atrial Rate 10/03/2022 69 P-R Interval 10/03/2022 154 QRS Duration 10/03/2022 98 QT Interval 10/03/2022 376 (more content not included)... [facility] 10-11-2022 History of Present illness Narrative Chief Complaint Patient presents with: Hip Pain HPI Joe Soler is a 67 year old male who presents here today for pain. Pt c/o bilateral hip pain constant x 2 months, sharp, dull, ache, limited ROM, muscle weakness. Pain lateral hips and around to groin. Worse in the morning, at times will improve through the day. No pain with laying on his side. He has used hot showers and taken Back and Body Pain relievers OCT. He also uses Aspirin daily, an OTC joint health supplement and Ibuprofen prn. Rated pain 0/10 just sitting. No apparent injury. Past medical history, appointments, medications, allergies reviewed. Previous Medical History PAST MEDICAL HISTORY Diagnosis Date Colon polyps Essential hypertension 05/16/2020 Family history of malignant neoplasm of gastrointestinal tract Stroke (HCC) 04/2020 Tobacco use Previous Surgical History PAST SURGICAL HISTORY Procedure Laterality Date COLONOSCOPY FLX DX W/COLLJ SPEC WHEN PFRMD 04/29/2013 Colonoscopy COLONOSCOPY FLX DX W/COLLJ SPEC WHEN PFRMD 12/17/2015 Colonoscopy COLONOSCOPY FLX DX W/COLLJ SPEC WHEN PFRMD 02/13/2017 Colonoscopy COLONOSCOPY FLX DX W/COLLJ SPEC WHEN PFRMD 04/19/2021 EYE SURGERY HX FRACTURE SURGERY HERNIA REPAIR HX LAPAROSCOPY SURG RPR INITIAL INGUINAL HERNIA 08/21/2013 BILAT RPR UMBILICAL HRNA 5 YRS/> REDUCIBLE 08/21/2013 SIGMOIDOSCOPY FLX DX W/COLLJ SPEC BR/WA IF PFRMD 06/12/2013 Sigmoidoscopy, flexible TONSILLECTOMY HX TONSILLECTOMY PRIMARY/SECONDARY <AGE 12 Tonsillectomy Family History FAMILY HISTORY Problem Relation Age of Onset Cancer Mother lung Stroke Father Colon Cancer Father Diagnosed at 79 Cancer Sister pancreatic Diabetes Maternal Grandfather other (leukemia) Son ALL Patient Allergies ALLERGIES No Known Allergies Current Medications Current Outpatient Medications on File Prior to Visit Medication Sig OTC NUTRITIONAL SUPPLEMENT once daily. Joint health lisinopril (ZESTRIL, PRINIVIL) 20 mg tablet Take 1 tablet by mouth once daily. atorvastatin (LIPITOR) 80 mg tablet Take 1 tablet by mouth once daily. tamsulosin (FLOMAX) 0.4 mg TAKE 1 CAPSULE BY MOUTH EVERYDAY AT BEDTIME (Patient not taking: Reported on 10/03/2022) ibuprofen (MOTRIN ORAL) Take 200 mg by mouth every 6 hours as needed. aspirin 81 mg chewable tablet Take 1 tablet by mouth once daily. No current facility-administered medications on file prior to visit. Social History Social History Tobacco Use Smoking status: Every Day Packs/day: 0.50 Years: 45.00 Pack years: 22.50 Types: Cigarettes Smokeless tobacco: Former Vaping Use Vaping Use: Never used Substance Use Topics Alcohol use: Yes Alcohol/week: 1.0 standard drink Types: 1 Cans of beer per week Comment: beer one a day 12 oz Drug use: No EXAM: BP 140/78 Pulse 68 Resp 16 Wt 89.6 kg (197 lb 9.6 oz) BMI 27.56 kg/m General Appearance: Well appearing, alert, in no acute distress, well-hydrated, well nourished. and athritic changes in hands noted. Hips: decrased ext rotation stevie; mild tenderness right posterior hip. Health Maintenance List ABDOMINAL AORTIC ANEURYSM SCREENING Never done COVID-19 VACCINE(1) Never done PNEUMOCOCCAL: 65+(1 - PCV) Never done SHINGRIX VACCINE(1 of 2) Never done PROSTATE CANCER SCREENING DISCUSSION due on 02/20/2015 DTAP,TDAP,TD(2 - Td or Tdap) due on 08/07/2019 INFLUENZA(1) due on 03/31/2022 ADVANCE DIRECTIVE DISCUSSION Never done DEPRESSION ASSESSMENT Never done ANNUAL PCP TEAM CHRONIC DISEASE VISIT due on 05/10/2023 LUNG CANCER SCREENING due on 08/11/2023 BP CONTROLLED (<130/80) due on 10/04/2023 DIABETES SCREEN due on 10/03/2025 LIPID SCREEN due on 01/20/2026 COLORECTAL CANCER SCREENING due on 04/19/2026 HEPATITIS C SCREENING Addressed HIV SCREENING Discontinued Data reviewed Appointment on 10/03/2022 Component Date Value Protein, Total 10/03/2022 6.7 Albumin 10/03/2022 3.9 Calcium, Total 10/03/2022 9.4 Bilirubin, Total 10/03/2022 0.2 Alkaline Phosphatase 10/03/2022 72 AST 10/03/2022 13 (A) ALT 10/03/2022 11 Glucose 10/03/2022 96 BUN 10/03/2022 16 Creatinine 10/03/2022 1.02 Sodium 10/03/2022 138 Potassium 10/03/2022 4.0 Chloride 10/03/2022 105 CO2 10/03/2022 25 Anion Gap 10/03/2022 8 (A) Estimated Glomerular Richard* 10/03/2022 82 WBC 10/03/2022 8.61 RBC 10/03/2022 4.65 Hemoglobin 10/03/2022 13.3 Hematocrit 10/03/2022 40.3 MCV 10/03/2022 86.7 MCH 10/03/2022 28.6 MCHC 10/03/2022 33.0 RDW-CV 10/03/2022 12.9 Platelet Count 10/03/2022 228 MPV 10/03/2022 10.3 Absolute nRBC 10/03/2022 <0.01 Results Only on 10/03/2022 Component Date Value Ventricular Rate 10/03/2022 69 Atrial Rate 10/03/2022 69 P-R Interval 10/03/2022 154 QRS Duration 10/03/2022 98 QT Interval 10/03/2022 376 QTC Calculation (Bazett) 10/03/2022 402 Calculated P [place] 10/03/2022 35 Calculated R [place] 10/03/2022 -5 Calculated T [place] 10/03/2022 41 ASSESSMENT/PLAN: 1. Hip pain - ICD9: 719.45, ICD10: M25.559 (primary diagnosis) Will check XR; use Mobic Discussed PT; he declined at this time - XR HIP BILATERAL 5V PEL/AP/LAT EACH HIP - MELOXICAM 15 MG TABLET 2. Dilated aortic root (HCC) - ICD9: 447.71, ICD10: I77.810 Followed by Cardiology Follow up prn I agree with the Chief Complaint, ROS, and Past Histories independently gathered by the clinical director decision support and the remaining scribed note accurately describes my personal service to the patient. Medical Decision Making: Problems: Low: Acute, uncomplicated illness or injury Data: Unique test(s) ordered: 1 Risk: Moderate: Drug management Medical Decision Making Level: 3 - Low Myesha Ramirez MD The documentation for this note was completed by Marissa Tony Ma acting as scribe for Myesha Ramirez MD. October 11, 2022 8:24 AM. Marissa Tony Ma documented in this encounter [facility] 10-03-2022 Note HNO ID: [id number] Author: Joyce Holt MD Service: ? Author Type: Physician Type: Progress Notes Filed: 10/03/2022 4:05 PM Note Text: Joyce Holt MD Interventional Cardiology [address] [place], [place] [id number] Chief Complaint Patient presents with: Follow Up HISTORY OF PRESENT ILLNESS: Mr. Soler is a 67 year old male seen in my office today for follow-up history of hypertensive heart disease transient ischemic attack with hyperlipidemia on good medical therapy Asymptomatic denies chest pain or shortness of breath left ventricular ejection fraction 56% mildly dilated ascending aorta measuring 4.1 cm Cardiac Risk Factors age (male over 45, female over 55), hyperlipidemia, hypertension, family history of CAD PAST MEDICAL HISTORY Diagnosis Date Colon polyps Essential hypertension 05/16/2020 Family history of malignant neoplasm of gastrointestinal tract Stroke (HCC) 04/2020 Tobacco use PAST SURGICAL HISTORY Procedure Laterality Date COLONOSCOPY FLX DX W/COLLJ SPEC WHEN PFRMD 04/29/2013 Colonoscopy COLONOSCOPY FLX DX W/COLLJ SPEC WHEN PFRMD 12/17/2015 Colonoscopy COLONOSCOPY FLX DX W/COLLJ SPEC WHEN PFRMD 02/13/2017 Colonoscopy COLONOSCOPY FLX DX W/COLLJ SPEC WHEN PFRMD 04/19/2021 EYE SURGERY HX FRACTURE SURGERY HERNIA REPAIR HX LAPAROSCOPY SURG RPR INITIAL INGUINAL HERNIA 08/21/2013 BILAT RPR UMBILICAL HRNA 5 YRS/> REDUCIBLE 08/21/2013 SIGMOIDOSCOPY FLX DX W/COLLJ SPEC BR/WA IF PFRMD 06/12/2013 Sigmoidoscopy, flexible TONSILLECTOMY HX TONSILLECTOMY PRIMARY/SECONDARY Tonsillectomy FAMILY HISTORY Problem Relation Age of Onset Cancer Mother lung Stroke Father Colon Cancer Father Diagnosed at 79 Cancer Sister pancreatic Diabetes Maternal Grandfather other (leukemia) Son ALL Social History Tobacco Use Smoking status: Every Day Packs/day: 0.50 Years: 45.00 Pack years: 22.50 Types: Cigarettes Smokeless tobacco: Former Vaping Use Vaping Use: Never used Substance Use Topics Alcohol use: Yes Alcohol/week: 1.0 standard drink Types: 1 Cans of beer per week Comment: beer one a day 12 oz Drug use: No ALLERGIES No Known Allergies Medications: Current Outpatient Medications Medication Sig Dispense Refill OTC NUTRITIONAL SUPPLEMENT once daily. Joint health ibuprofen (MOTRIN ORAL) Take 200 mg by mouth every 6 hours as needed. aspirin 81 mg chewable tablet Take 1 tablet by mouth once daily. 30 tablet 3 lisinopril (ZESTRIL, PRINIVIL) 20 mg tablet Take 1 tablet by mouth once daily. 90 tablet 1 atorvastatin (LIPITOR) 80 mg tablet Take 1 tablet by mouth once daily. 30 tablet 2 tamsulosin (FLOMAX) 0.4 mg TAKE 1 CAPSULE BY MOUTH EVERYDAY AT BEDTIME (Patient not taking: Reported on 10/03/2022) 30 capsule 2 No current facility-administered medications for this visit. Review of Systems Constitutional: Negative for chills, diaphoresis, fever, malaise/fatigue and weight loss. HENT: Negative for congestion, ear discharge, ear pain, hearing loss, nosebleeds, sinus pain, sore throat and tinnitus. Eyes: Negative for blurred vision, double vision, photophobia, pain, discharge and redness. Respiratory: Negative for cough, hemoptysis, sputum production, shortness of breath, wheezing and stridor. Cardiovascular: Negative for chest pain, palpitations, orthopnea, claudication, leg swelling and PND. Gastrointestinal: Negative for abdominal pain, blood in stool, constipation, diarrhea, heartburn, melena, nausea and vomiting. Genitourinary: Negative for dysuria, flank pain, frequency, hematuria and urgency. Musculoskeletal: Negative for back pain, falls, joint pain, myalgias and neck pain. Skin: Negative for itching and rash. Neurological: Negative for dizziness, tingling, tremors, sensory change, speech change, focal weakness, seizures, loss of consciousness, weakness and headaches. Endo/Heme/Allergies: Negative for environmental allergies and polydipsia. Does not bruise/bleed easily. Psychiatric/Behavioral: Negative for depression, hallucinations, memory loss, substance abuse and suicidal ideas. The patient is not nervous/anxious and does not have insomnia. Physical Examination: Vitals:BP 114/70 Pulse 80 Wt 196 lb (88.9kg) SpO2 96% BP w/Orthostatic Vitals Date and Time Orthostatic BP Orthostatic Pulse BP Pulse BP Position BP Site BP Cuff Size 10/03/22 1525 -- -- 114/70 80 -- -- -- Last 2 Encounter Wt Readings: Date: Wt: 10/03/2022 88.9 kg (196 lb) 08/11/2022 88.3 kg (194 lb 11.2 oz) Physical Exam Constitutional: General: He is not in acute distress. Appearance: He is not diaphoretic. HENT: Head: Normocephalic and atraumatic. Right Ear: External ear normal. Left Ear: External ear normal. Nose: Nose normal. Mouth/Throat: Pharynx: Oropharynx is clear. Eyes: General: Right eye: No discharge. Left eye: No discharge. Conjunctiva/sclera: Conj (more content not included)... [facility] 08-12-2022 History of Present illness Narrative 08/12/2022-I tried to call the patient's 's cell phone number as directed to discuss results of the lung cancer screening chest CT scan. There was no answer and I left a message to please return my call. Tasha Loja CNP documented in this encounter [facility] 08-11-2022 Instructions Tasha Loja APRN.ANUSHKA - 08/11/2022 9:[address] Lung Screen Results The CT scan that you will have done today will let us know if you have any nodules (small spots) in your lungs that are suspicious for cancer. Around of the patients who have this scan done will be found to have at least one nodule. Most nodules are benign (not cancer), and of no harm to you at all. A specialist will make a scientific evaluation about whether or not a nodule is worrisome based on its size and shape. The radiologist who will read your scan will put it into one of four categories: Category 1 - This means that you do not have any nodules of concern in your lungs at this time. It is advised that a CT lung screen should be repeated in one year. Category 2 - This means that you have one or more extremely small nodules present in your lungs. These nodules are so small that there is a very low chance, less than 1% risk, that the nodule/s present are cancerous, so the recommendation is to follow with a CT lung screen in one year. Category 3 - This means that there is a nodule/s present which are a little bit larger or have certain features that would warrant an additional CT scan in 6 months. Though we follow these nodules more closely than the first two categories, there is still only a 1-2% chance that they are cancerous. Category 4 - This means that there is a larger nodule or other finding that requires special medical attention. These results will be discussed with you in detail with plans for further testing based on the specific findings. We will communicate the results to you however you would like - [place], by phone, face to face visit. We will also send them in a letter to you. If you choose to receive the results through [employer] we will also call you with any Category 3 or 4 finding. Lung Cancer Screening hotline: [phone] Specialist Provider: Tasha Loja APRN.CNP [phone] documented in this encounter [facility] 08-11-2022 History of Present illness Narrative Images from the original note were not included. LUNG SCREENING VISIT PRIMARY CARE PHYSICIAN: Myesha Ramirez MD PULMONARY PROVIDER: None Results will be communicated via telephone. Visit Delivery: In Person Patient Visit Type: Established Current Exam Type: annual LDCT Number of Pack Years: 45 Current smoker The patient's smoking history is similar to prior year shared decision visit. Results will be communicated via telephone. REQUESTER: Mary Lyon CNP HISTORY OF PRESENT ILLNESS: Joe Soler is a 67 year old active smoker who presents for lung screening. Respiratory symptoms include: SOB: No Chest tightness: No Coughing: Yes: With mucus Clear Hemoptysis: No Wheezing: No Fever/Chills: No Recent Respiratory Infection: No Unintentional weight loss: No Last 6 Encounter Wt Readings: Date: Wt: 08/11/2022 88.3 kg (194 lb 11.2 oz) 05/10/2022 88.5 kg (195 lb) 05/07/2022 88.6 kg (195 lb 6.4 oz) 02/01/2022 86.6 kg (191 lb) 10/18/2021 88.5 kg (195 lb) 09/06/2021 88 kg (194 lb) ECOG PERFORMANCE STATUS: 0- Fully active, able to carry on all pre-disease performance w/o restriction. Modified Medical Research [place]ron Dyspnea Scale (MMRC) I only get breathless with strenous exercise 0 Lung Cancer Risk Factors: 1.Tobacco Use: Start Age 20, Quit Age N/A , Average packs per day 1, Pack Years 48. 2. Passive Smoke Exposure: Yes as a child. 3. Personal hx of malignancy: No. 4. Significant exposures (1 year or more of exposure): Dusts. 5. Race: White. 6. Education:High school graduate 7. BMI:Body mass index is 27.16 kg/m . 8. COPD: No 9. Pneumonia in the past 5 years: No 10. Is there a history of lung cancer in a first degree relative? Yes. 11. Is there a history of lung cancer in a non first degree relative? No 12. Is there a history of any other cancer in a first degree relative? Yes. PAST MEDICAL HISTORY Diagnosis Date Colon polyps Essential hypertension 05/16/2020 Family history of malignant neoplasm of gastrointestinal tract Stroke (HCC) 04/2020 Tobacco use PAST SURGICAL HISTORY Procedure Laterality Date COLONOSCOPY FLX DX W/COLLJ SPEC WHEN PFRMD 04/29/2013 Colonoscopy COLONOSCOPY FLX DX W/COLLJ SPEC WHEN PFRMD 12/17/2015 Colonoscopy COLONOSCOPY FLX DX W/COLLJ SPEC WHEN PFRMD 02/13/2017 Colonoscopy COLONOSCOPY FLX DX W/COLLJ SPEC WHEN PFRMD 04/19/2021 EYE SURGERY HX FRACTURE SURGERY HERNIA REPAIR HX LAPAROSCOPY SURG RPR INITIAL INGUINAL HERNIA 08/21/2013 BILAT RPR UMBILICAL HRNA 5 YRS/> REDUCIBLE 08/21/2013 SIGMOIDOSCOPY FLX DX W/COLLJ SPEC BR/WA IF PFRMD 06/12/2013 Sigmoidoscopy, flexible TONSILLECTOMY HX TONSILLECTOMY PRIMARY/SECONDARY <AGE 12 Tonsillectomy FAMILY HISTORY Problem Relation Age of Onset Cancer Mother lung Stroke Father Colon Cancer Father Diagnosed at 79 Cancer Sister pancreatic Diabetes Maternal Grandfather other (leukemia) Son ALL lisinopril (ZESTRIL, PRINIVIL) 20 mg tablet Take 1 tablet by mouth once daily. tamsulosin (FLOMAX) 0.4 mg TAKE 1 CAPSULE BY MOUTH EVERYDAY AT BEDTIME ibuprofen (MOTRIN ORAL) Take 200 mg by mouth every 6 hours as needed. atorvastatin (LIPITOR) 80 mg tablet Take 1 tablet by mouth once daily. aspirin 81 mg chewable tablet Take 1 tablet by mouth once daily. ALLERGIES No Known Allergies The medications and allergies were reviewed and reconciled for this patient and deemed current. Health Maintenance Immunization History Administered Date(s) Administered Influenza Seasonal Inj Quad Age 6 Mo - 64 Yrs 05/22/2020 Tdap (Age 7+) 08/07/2009 Colonoscopy: 04/19/2021 DATA REVIEW I have directly visualized the testing documented: Prior Imaging: Last CT/CTA Chest/Lungs CT LUNG FOLLOWUP WO IVCON Exam End: 08/09/2021 3:52 PM (Final result) Narrative: * * *Final Report* * * DATE OF EXAM: Aug 09 2021 3:52PM OCC 0561 - CT LUNG FOLLOWUP WO IVCON / PROCEDURE REASON: Lung nodules * * * * Physician Interpretation * * * * RESULT: EXAMINATION: CT LUNG FOLLOWUP WO IVCON CLINICAL HISTORY: Lung nodules Technique: Spiral CT acquisition of the chest from the thoracic inlet to the upper abdomen without contrast. MQ: [id number]_6 Followup LDCT Patient characteristics: * Zaat-ok-Cgcrs: 1955; Age at exam: 66 years * Gender: Male * Lung Disease: Asymptomatic (no signs or symptoms of lung disease) * Number of Pack Years: 45 * Current smoker (=0) or Number of Years since Quit: 0 * Ordering provider and NPI: MARY BLACKMON [id number] * Interpreting radiologist and NPI: [place] [id number] Exam acquisition parameters: * Exam Date: 08/09/2021 3:52 PM * Site: [facility] * * CT System Senior Architectural Designer: Connect * CT System Model: [employer] * Tube Current-Time (mA-sec): 40 * Peak Voltage (kV): 120 * Scan Time (sec): 12.68 * Scan Volume (z-length, cm): 28.25 * Pitch: 1.375 * Slice Thickness (mm): 1.25 * CT Dose-Length Product: 152.28 mGy*cm * CT Dose Index: 4.18mGy * CT Dose Reduction Method: Automated exposure control (AEC) COMPARISON: Low-dose chest CT dated 02/11/2021. RESULT: Are nodules present? Yes, 6 or more nodules Nodule 1: This Solid nodule is located in the Right Lower Lobe on slice number 209 with an average diameter of 6.9 mm (8.9 mm x 4.9 mm). Stable Nodule 2: This Solid nodule is located in the Right Upper Lobe on slice number 99 with an average diameter of 5.0 mm (6.2 mm x 3.8 mm). Stable Nodule 3: This Solid nodule is located in the Right Lower Lobe on slice number 210 with an average diameter of 4.1 mm (4.8 mm x 3.5 mm). Stable Nodule 4: This Solid nodule is located in the Left Upper Lobe on slice number 225 with an average diameter of 3.8 mm (4.6 mm x 3.1 mm). Stable Nodule 5: This Solid nodule is located in the Right Upper Lobe on slice number 84 with an average diameter of 2.0 mm (2.1 mm x 1.8 mm). Stable Other lung nodule comments: Additional stable lung nodules are noted for example 12 mm nodule with a central calcification consistent with a granuloma (image 202) and perifissural right lower lobe nodule (image 190), likely a lymph node. Other findings: The central airways are patent without endobronchial lesion. There is diffuse bronchial wall thickening. No focal consolidation. The imaged thyroid gland is stable noting asymmetrical enlargement of left thyroid gland containing poorly defined hypodense nodule, unchanged. Subcentimeter thoracic lymph nodes are stable. Atherosclerotic calcifications are seen in the thoracic aorta noting ectasia of ascending aorta up to 4.2 cm. The main pulmonary artery is normal in caliber. There is mild left atrial enlargement. Aortic valve leaflets calcifications are seen. Scattered coronary artery calcifications are noted. No pericardial effusion or pericardial thickening. The imaged upper abdomen is stable without acute abnormality. There are degenerative changes of the thoracic spine. Emphysema: Trivial (less than 5%), centrilobular, upper lobe Coronary Artery Calcifications: Circumflex minimum; Left Anterior Descending mild; Right Coronary minimum Section Repairer (topogram) images: No additional findings. Impression: IMPRESSION: LungRADS category: 2 LungRADS modifier: None LungRADS 0 reason: n/a Recommendations: Continue annual screening with LDCT in 12 months. Other actionable findings: ========= Reference: [employer]. Lung CT Screening Reporting and Data System (Lung-RADS). Available at: http://www.acr.org/Quality-Safety /Resources/LungRADS Transcribe Date/Time: Aug 10 2021 8:30A Dictated by: SHERLY CRUZ MD This examination was interpreted and the report reviewed and electronically signed by: SHERLY CRUZ MD on Aug 10 2021 8:50AM EST Thank you for allowing us to participate in the care of your patient. Last CT Chest - Impression Only No resulted procedures found. Last XR Chest - Impression Only No resulted procedures found. Pulmonary Function Testing: No textual results found for the specified procedure(s). PHYSICAL EXAM: Deferred BP 143/89 Pulse (!) 59 Temp 36.9 C (98.4 F) (Oral) Resp 20 Wt 88.3 kg (194 lb 11.2 oz) SpO2 97% BMI 27.16 kg/m ASSESSMENT and RECOMMENDATIONS: 1. Screening for lung cancer: Six year risk for lung cancer: 7.2% Source: Kandu I have determined that the patient is eligible for a low dose CT based on age, absence of signs or symptoms of lung cancer, and total pack years: Yes. The patient and I engaged in shared decision making, including the use of one or more decision aids, to include benefits, harms, follow-up diagnostic testing, over-diagnosis, false positive rate, and total radiation exposure. The patient understands and feels comfortable with it: Yes. The patient was counseled on the importance of adherence to annual LDCT lung cancer screening, impact of comorbidities and ability or willingness to undergo diagnosis and treatment. The patient understands and feels comfortable with it:Yes. 2. Nicotine dependence: The patient was counseled on the importance of smoking cessation if current smoker and, if appropriate, offered additional tobacco cessation counseling services - . The patient is currently not ready to quit. He is not interested in smoking cessation assistance at this time. Tasha Loja APRN.CNP NPI #: August 11, 2022 9:41 AM documented in this encounter [facility] 07-11-2022 Miscellaneous Notes The following approved medication requests have been transmitted electronically. Requested Prescriptions Pending Prescriptions Disp Refills lisinopril (ZESTRIL, PRINIVIL) 20 mg tablet 30 tablet 2 Sig: Take 1 tablet by mouth once daily. Fernando Sanchez APRN.CNP Summary: Refill Patient has been identified by name and date of : Yes Last office visit in this department: 05/10/2022 Labs-05/09/22 NOV-none med filled 04/05/22 RX INSTRUCTIONS: Patient aware RX will be sent to pharmacy. No need to notify patient. Patient phones requesting refills as follows: Requested Prescriptions Pending Prescriptions Disp Refills lisinopril (ZESTRIL, PRINIVIL) 20 mg tablet 30 tablet 2 Sig: Take 1 tablet by mouth once daily. Please review and advise. Kiley Jara documented in this encounter [facility] 05-28-2022 Miscellaneous Notes Patient calls in and results and provider message reviewed. Patient reports pain in gone. Patient will come in and have urine test and lab work completed. Amairani Myles RN TC to pt. LM to call office, ask for triage nurse to get results. Berna Navarro LPN Please inform the patient that his CT of the abdomen and pelvis shows findings of a non-obstructing kidney stone in his left and right kidney. Very small in size. If his pain is not gone, then we should get him to urology. I would remind the patient to repeat urine sample and repeat blood work to recheck kidney function. Order is in. Fernando Sanchez APRN.CNP documented in this encounter [facility] 05-10-2022 Instructions Fernando Sanchez APRN.CNP - 05/10/2022 8:16 AM EDT Finish antibiotic Get blood work in 2 weeks to recheck kidney function. Repeat urine sample in 2 weeks to follow up on blood in urine Schedule CT of the abdomen and pelvis to looks for kidney stones, evaluate bladder 4. Go to the ER if you get increased pain in the abdomen. Fernando Sanchez APRN.CNP documented in this encounter [facility] 05-10-2022 History of Present illness Narrative Chief Complaint Patient presents with: Follow Up: Urgent Care Visit d/t difficulty urinating and abdominal pain HPI Joe Soler is a 67 year old male who presents here today for follow up UC. Pt was in UC on Monday for left lower abdominal pain with difficulty urinating. He was started on Keflex for 7 days. He was treated for possible UTI. Still has off and on LLQ pain, but the urinary issues have improved. No diarrhea or constipation. No nausea or vomiting. No fevers. Denies any ongoing gross hematuria. Patient does state that he previously had intermittent brown/tea colored urine. He denies any blood in his stools. He has been trying to drink less caffeinated beverages and more Gatorade. He is using Flomax as prescribed. He does have a history of renal calculi with most recent in January 2022. He is a current smoker. Patient did have increased creatinine, decreased GFR on initial evaluation in urgent care. Repeat testing showed creatinine did improve from 1.5-1.3. Past medical history, appointments, medications, allergies reviewed. Previous Medical History PAST MEDICAL HISTORY Diagnosis Date Colon polyps Essential hypertension 05/16/2020 Family history of malignant neoplasm of gastrointestinal tract Stroke (HCC) 04/2020 Tobacco use Previous Surgical History PAST SURGICAL HISTORY Procedure Laterality Date COLONOSCOPY FLX DX W/COLLJ SPEC WHEN PFRMD 04/29/2013 Colonoscopy COLONOSCOPY FLX DX W/COLLJ SPEC WHEN PFRMD 12/17/2015 Colonoscopy COLONOSCOPY FLX DX W/COLLJ SPEC WHEN PFRMD 02/13/2017 Colonoscopy COLONOSCOPY FLX DX W/COLLJ SPEC WHEN PFRMD 04/19/2021 EYE SURGERY HX FRACTURE SURGERY HERNIA REPAIR HX LAPAROSCOPY SURG RPR INITIAL INGUINAL HERNIA 08/21/2013 BILAT RPR UMBILICAL HRNA 5 YRS/> REDUCIBLE 08/21/2013 SIGMOIDOSCOPY FLX DX W/COLLJ SPEC BR/WA IF PFRMD 06/12/2013 Sigmoidoscopy, flexible TONSILLECTOMY HX TONSILLECTOMY PRIMARY/SECONDARY <AGE 12 Tonsillectomy Family History FAMILY HISTORY Problem Relation Age of Onset Cancer Mother lung Stroke Father Colon Cancer Father Diagnosed at 79 Cancer Sister pancreatic Diabetes Maternal Grandfather other (leukemia) Son ALL Patient Allergies ALLERGIES No Known Allergies Current Medications Current Outpatient Medications on File Prior to Visit Medication Sig cephALEXin (KEFLEX) 500 mg capsule Take 1 capsule by mouth twice daily for 7 days. lisinopril (ZESTRIL, PRINIVIL) 20 mg tablet TAKE 1 TABLET BY MOUTH EVERY DAY tamsulosin (FLOMAX) 0.4 mg TAKE 1 CAPSULE BY MOUTH EVERYDAY AT BEDTIME ibuprofen (MOTRIN ORAL) Take 200 mg by mouth every 6 hours as needed. lisinopril (ZESTRIL, PRINIVIL) 20 mg tablet Take 1 tablet by mouth once daily. atorvastatin (LIPITOR) 80 mg tablet Take 1 tablet by mouth daily at bedtime. lisinopril (ZESTRIL, PRINIVIL) 20 mg tablet Take 1 tablet by mouth once daily. atorvastatin (LIPITOR) 80 mg tablet Take 1 tablet by mouth once daily. aspirin 81 mg chewable tablet Take 1 tablet by mouth once daily. Current Facility-Administered Medications on File Prior to Visit Medication perflutren lipid microspheres 1.3 mL in NaCl (PF) 0.9% 10 mL injection (DEFINITY) sodium chloride 0.9 % (flush) 10 mL (BD POSIFLUSH) Social History Social History Tobacco Use Smoking status: Every Day Packs/day: 0.50 Years: 45.00 Pack years: 22.50 Types: Cigarettes Smokeless tobacco: Former Vaping Use Vaping Use: Never used Substance Use Topics Alcohol use: Yes Alcohol/week: 1.0 standard drink Types: 1 Cans of beer per week Comment: beer one a day 12 oz Drug use: No EXAM: BP 134/83 Pulse 61 Resp 16 Wt 88.5 kg (195 lb) BMI 27.20 kg/m General Appearance: Well appearing, alert, in no acute distress, well-hydrated, well nourished.. Lungs: Lungs clear to auscultation. No wheezing, rhonchi, rales.. Heart: RRR without murmur, gallop, or rubs. No ectopy. Abdomen: Normal abdominal exam, Abdomen soft, non-tender. Bowel sounds normal. No masses, organomegaly. Health Maintenance List ABDOMINAL AORTIC ANEURYSM SCREENING Never done COVID-19 VACCINE(1) Never done PNEUMOCOCCAL: 65+(1 - PCV) Never done BP CONTROLLED (<130/80) Never done SHINGRIX VACCINE(1 of 2) Never done PROSTATE CANCER SCREENING DISCUSSION due on 02/20/2015 DTAP,TDAP,TD(2 - Td or Tdap) due on 08/07/2019 DEPRESSION ASSESSMENT Never done INFLUENZA(1) due on 03/31/2022 ADVANCE DIRECTIVE DISCUSSION Never done LUNG CANCER SCREENING due on 08/09/2022 ANNUAL PCP TEAM CHRONIC DISEASE VISIT due on 10/18/2022 DIABETES SCREEN due on 05/09/2025 LIPID SCREEN due on 01/20/2026 COLORECTAL CANCER SCREENING due on 04/19/2026 HEPATITIS C SCREENING Addressed HIV SCREENING Discontinued Data reviewed Appointment on 05/09/2022 Component Date Value Glucose 05/09/2022 112 (A) BUN 05/09/2022 19 Creatinine 05/09/2022 1.30 (A) Sodium 05/09/2022 140 Potassium 05/09/2022 4.2 Chloride 05/09/2022 106 (A) CO2 05/09/2022 27 Anion Gap 05/09/2022 7 (A) Calcium, Total 05/09/2022 9.3 Estimated Glomerular Richard* 05/09/2022 61 Appointment on 05/07/2022 Component Date Value WBC 05/07/2022 8.76 RBC 05/07/2022 4.89 Hemoglobin 05/07/2022 14.5 Hematocrit 05/07/2022 44.7 MCV 05/07/2022 91.4 MCH 05/07/2022 29.7 MCHC 05/07/2022 32.4 RDW-CV 05/07/2022 14.0 Platelet Count 05/07/2022 198 MPV 05/07/2022 11.5 Neut% 05/07/2022 71.4 Abs Neut 05/07/2022 6.26 Lymph% 05/07/2022 13.0 Abs Lymph 05/07/2022 1.14 Avery% 05/07/2022 13.4 Abs Avery 05/07/2022 1.17 (A) Eosin% 05/07/2022 1.4 Abs Eosin 05/07/2022 0.12 Baso% 05/07/2022 0.6 Abs Baso 05/07/2022 0.05 Immature Gran % 05/07/2022 0.2 Abs Immature Gran 05/07/2022 <0.03 NRBC 05/07/2022 0.0 Absolute nRBC 05/07/2022 <0.01 Diff Type 05/07/2022 Auto Protein, Total 05/07/2022 6.7 Albumin 05/07/2022 4.1 Calcium, Total 05/07/2022 9.5 Bilirubin, Total 05/07/2022 0.6 Alkaline Phosphatase 05/07/2022 74 AST 05/07/2022 26 ALT 05/07/2022 20 Glucose 05/07/2022 93 BUN 05/07/2022 22 Creatinine 05/07/2022 1.50 (A) Sodium 05/07/2022 140 Potassium 05/07/2022 4.7 Chloride 05/07/2022 105 CO2 05/07/2022 25 Anion Gap 05/07/2022 10 Estimated Glomerular Rcihard* 05/07/2022 51 (A) Office Visit on 05/07/2022 Component Date Value GLUCOSE UA (POCT) 05/07/2022 Negative BILIRUBIN UA (POCT) 05/07/2022 Negative KETONE UA (POCT) 05/07/2022 Negative SPECIFIC GRAVITY UA (POC* 05/07/2022 1.025 HEMOGLOBIN/BLOOD UA (PO* 05/07/2022 Large (A) PH UA (POCT) 05/07/2022 5.5 PROTEIN UA (POCT) 05/07/2022 30 (A) UROBILINOGEN UA (POCT) 05/07/2022 0.2 NITRITE UA (POCT) 05/07/2022 Negative LEUKOCYTES UA (POCT) 05/07/2022 Trace (A) COLOR UA (POCT) 05/07/2022 Dark yellow CLARITY UA (POCT) 05/07/2022 Clear Culture, Urine 05/07/2022 No growth (<1,000 CFU/ml) ASSESSMENT/PLAN: 1. Renal calculi - ICD9: 592.0, ICD10: N20.0 (primary diagnosis) -History of renal calculi. Along with urinary symptoms, should reevaluate. Likely get patient set up with urology if stone are found. - CT ABD/PEL WO IVCON 2. Microscopic hematuria - ICD9: 599.72, ICD10: R31.29 -Urine culture was normal. Hematuria not due to infection. Possible stone?. We need to repeat urine in 2 weeks given he is a current smoker. - URINALYSIS, WITH MICROSCOPIC - CT ABD/PEL WO IVCON 3. Gross hematuria - ICD9: 599.71, ICD10: R31.0 -Intermittent episodes. Likely secondary to renal stones. Continue with hydration, repeat urine and get CT. - URINALYSIS, WITH MICROSCOPIC - CT ABD/PEL WO IVCON 4. Left flank pain - ICD9: 789.09, ICD10: R10.9 -Likely stone. Get imaging, keep hydrated, continue Flomax. - CT ABD/PEL WO IVCON 5. Decreased GFR - ICD9: 794.4, ICD10: R94.4 -Improved. Repeat in 2 weeks with urine sample. - BASIC METABOLIC PNL Fernando Sanchez APRN.MACHINE HAND documented in this encounter [facility] 05-09-2022 Miscellaneous Notes Left detailed message on a secured voicemail. Ele Hartmann Please let patient know that urine culture was negative for infection. Advise f/u in the next 2 weeks with PCP to repeat urine and confirm hematuria is resolving. F/u sooner for worsening or persistent sx. documented in this encounter [facility] 05-08-2022 Miscellaneous Notes returns call. States that they are well, conservation scientist did come out and check on them. States they are having phone troubles. Discussed elevated creatinine. accompanies phone call and states he is doing okay. Tolerating PO ATB. Tolerating fluids and doing good Patient will represent on 05/09/22 to have repeat BMP will call for a follow up appointment this week with Dr. Ramirez When BMP results, if trending upwards will need referred to ED for concerns of DARYL and/or renal obstruction. If stable and trending downwards, plan to follow up with Dr. Ramirez this week. Creatinine has resulted at 1.50 (this is a bump compared to prior trends) Reached out to thong number, as requested by patient at time of visit to discuss results and treatment. No answer. Voicemail message left. Reached out to Joe number and had x 3 pick ups but no answer. Reached out to the [facility] [employer] and requested a well check. They will dispatch out deputy, and request that patient return call. documented in this encounter [facility] 05-07-2022 Instructions Graciela Lazo APRN.CNP - 05/07/2022 11:11 AM EDT URINARY TRACT INFECTION GENERAL INFORMATION: A urinary tract infection (UTI) is an infection of the bladder or kidneys. A bladder infection, called cystitis, is the more common type. If the infection travels up to the kidneys, it is called pyelonephritis. This can be more serious. UTIs are a common problem in women. Having sexual relations can leave a woman more susceptible to developing a UTI, but it is not sexually transmitted like gonorrhea. Some women have a problem with recurrent UTIs. INSTRUCTIONS: 1. Your doctor prescribed an antibiotic to treat the UTI. Take exactly as directed. Be sure to take all the medication prescribed, even if your symptoms disappear. If you stop treatment early, the infection may not be fully treated and the symptoms could come back again. 2. Get plenty of rest. You may take acetaminophen for fever and aches. 3. Drink 6 to 8 glasses of fluids, especially water, every day. This helps wash out germs from your urinary tract. Cranberry juice or other sources of vitamin C are also good for you. 4. Urinate often, as soon as you feel the urge. Empty your bladder completely. Urinate before and after you have sex. 5. Always wipe from front to back after going to the bathroom. This pushes germs away from your bladder, rather than towards it. 6. Showers are better than baths, and you should wash the genital area daily. Avoid bubble bath or bath oils if you do take a bath. 7. Wear underwear and pantyhose with a cotton crotch. CONTACT YOUR DOCTOR: 1. You have a temperature over 102F (38.8C) after 48 hours on medication. 2. You notice blood in your urine. 3. Your symptoms don't improve in 2 days. 4. You develop nausea, vomiting, diarrhea, or a rash. 5. You develop new or unexplained symptoms. These may be related to the medication you are taking. 6. Your symptoms return after you finish treatment. RETURN TO THE EMERGENCY DEPARTMENT IF: You develop vomiting and can't keep your medication or fluids down. documented in this encounter [facility] 05-07-2022 History of Present illness Narrative This note was created using [employer] ([employer])ter. Subjective Joe Soler is a 67 year old male. 67 year old male with PMH HTN, hyperlipidemia, and TIA presents with complaints of possible UTI. Acute onset last night +pain with urinating Left flank pain Denies hesitancy. Denies dribbling. Denies cindy blood. Denies penile discharge. Denies testicular pain. Denies scrotal swelling. States that he had a kidney stone over the summer, but this feels different. That was something else referencing his symptoms with kidney stones. The history is provided by the patient. No speech language specialist was used. UTI This is a new problem. The current episode started yesterday. The problem occurs every urination. The problem has been gradually worsening. The quality of the pain is described as burning. The pain is at a severity of 4/10. The pain is mild. There has been no fever. He is Sexually active. There is No history of pyelonephritis. Associated symptoms include urgency and flank pain. Pertinent negatives include no chills, no sweats, no nausea, no vomiting, no discharge, no frequency, no hematuria and no hesitancy. He has tried nothing for the symptoms. His past medical history is significant for kidney stones. His past medical history does not include single kidney, urological procedure, recurrent UTIs, urinary stasis or catheterization. PAST MEDICAL HISTORY Diagnosis Date Colon polyps Essential hypertension 05/16/2020 Family history of malignant neoplasm of gastrointestinal tract Stroke (HCC) 04/2020 Tobacco use PAST SURGICAL HISTORY Procedure Laterality Date COLONOSCOPY FLX DX W/COLLJ SPEC WHEN PFRMD 04/29/2013 Colonoscopy COLONOSCOPY FLX DX W/COLLJ SPEC WHEN PFRMD 12/17/2015 Colonoscopy COLONOSCOPY FLX DX W/COLLJ SPEC WHEN PFRMD 02/13/2017 Colonoscopy COLONOSCOPY FLX DX W/COLLJ SPEC WHEN PFRMD 04/19/2021 EYE SURGERY HX FRACTURE SURGERY HERNIA REPAIR HX LAPAROSCOPY SURG RPR INITIAL INGUINAL HERNIA 08/21/2013 BILAT RPR UMBILICAL HRNA 5 YRS/> REDUCIBLE 08/21/2013 SIGMOIDOSCOPY FLX DX W/COLLJ SPEC BR/WA IF PFRMD 06/12/2013 Sigmoidoscopy, flexible TONSILLECTOMY HX TONSILLECTOMY PRIMARY/SECONDARY <AGE 12 Tonsillectomy ALLERGIES Patient has no known allergies. MEDICATIONS lisinopril (ZESTRIL, PRINIVIL) 20 mg tablet^TAKE 1 TABLET BY MOUTH EVERY DAY^Disp: 30 tablet^Rfl: 32 tamsulosin (FLOMAX) 0.4 mg^TAKE 1 CAPSULE BY MOUTH EVERYDAY AT BEDTIME^Disp: 30 capsule^Rfl: 2 ibuprofen (MOTRIN ORAL)^Take 200 mg by mouth every 6 hours as needed.^Disp: ^Rfl: lisinopril (ZESTRIL, PRINIVIL) 20 mg tablet^Take 1 tablet by mouth once daily.^Disp: 90 tablet^Rfl: 3 atorvastatin (LIPITOR) 80 mg tablet^Take 1 tablet by mouth daily at bedtime.^Disp: 90 tablet^Rfl: 3 lisinopril (ZESTRIL, PRINIVIL) 20 mg tablet^Take 1 tablet by mouth once daily.^Disp: 30 tablet^Rfl: 2 atorvastatin (LIPITOR) 80 mg tablet^Take 1 tablet by mouth once daily.^Disp: 30 tablet^Rfl: 2 aspirin 81 mg chewable tablet^Take 1 tablet by mouth once daily.^Disp: 30 tablet^Rfl: 3 FAMILY HISTORY Problem Relation Age of Onset Cancer Mother lung Stroke Father Colon Cancer Father Diagnosed at 79 Cancer Sister pancreatic Diabetes Maternal Grandfather other (leukemia) Son ALL Social History Tobacco Use Smoking status: Every Day Packs/day: 0.50 Years: 45.00 Pack years: 22.50 Types: Cigarettes Smokeless tobacco: Former Vaping Use Vaping Use: Never used Substance Use Topics Alcohol use: Yes Alcohol/week: 1.0 standard drink Types: 1 Cans of beer per week Comment: beer one a day 12 oz Drug use: No Review of Systems Constitutional: Negative for chills. HENT: Negative for congestion, dental problem, drooling and ear discharge. Eyes: Negative for pain, discharge and itching. Respiratory: Negative for apnea, choking and chest tightness. Cardiovascular: Negative for chest pain, palpitations and leg swelling. Gastrointestinal: Negative for abdominal pain, constipation, nausea and vomiting. Genitourinary: Positive for dysuria, flank pain and urgency. Negative for decreased urine volume, difficulty urinating, frequency, hematuria, hesitancy, penile discharge, penile pain, penile swelling, scrotal swelling and testicular pain. Musculoskeletal: Negative for arthralgias and back pain. Skin: Negative for color change, pallor, rash and wound. Allergic/Immunologic: Negative for environmental allergies, food allergies and immunocompromised state. Neurological: Negative for dizziness, facial asymmetry and headaches. Hematological: Negative for adenopathy. Does not bruise/bleed easily. Psychiatric/Behavioral: Negative for agitation, behavioral problems and confusion. Objective BP 156/88 Pulse 71 Temp 36.6 C (97.8 F) (Tympanic) Resp 16 Wt 88.6 kg (195 lb 6.4 oz) SpO2 97% BMI 27.25 kg/m Physical Exam Vitals and nursing note reviewed. Constitutional: General: He is not in acute distress. Appearance: Normal appearance. He is not ill-appearing, toxic-appearing or diaphoretic. HENT: Head: Normocephalic and atraumatic. Right Ear: External ear normal. Left Ear: External ear normal. Nose: Nose normal. No congestion or rhinorrhea. Mouth/Throat: Mouth: Mucous membranes are moist. Pharynx: Oropharynx is clear. No oropharyngeal exudate or posterior oropharyngeal erythema. Eyes: General: Right eye: No discharge. Left eye: No discharge. Extraocular Movements: Extraocular movements intact. Conjunctiva/sclera: Conjunctivae normal. Pupils: Pupils are equal, round, and reactive to light. Cardiovascular: Rate and Rhythm: Normal rate and regular rhythm. Pulses: Normal pulses. Heart sounds: Normal heart sounds. No murmur heard. No friction rub. No gallop. Pulmonary: Effort: Pulmonary effort is normal. No respiratory distress. Breath sounds: Normal breath sounds. No stridor. No wheezing, rhonchi or rales. Chest: Chest wall: No tenderness. Abdominal: General: Abdomen is flat. There is no distension. Palpations: Abdomen is soft. There is no mass. Tenderness: There is no abdominal tenderness. There is left CVA tenderness. There is no right CVA tenderness, guarding or rebound. Hernia: No hernia is present. Musculoskeletal: General: No swelling, tenderness, deformity or signs of injury. Normal range of motion. Cervical back: Normal range of motion and neck supple. No rigidity or tenderness. Right lower leg: No edema. Left lower leg: No edema. Lymphadenopathy: Cervical: No cervical adenopathy. Skin: General: Skin is warm and dry. Capillary Refill: Capillary refill takes less than 2 seconds. Coloration: Skin is not jaundiced or pale. Findings: No bruising, lesion or rash. Neurological: General: No focal deficit present. Mental Status: He is alert and oriented to person, place, and time. Cranial Nerves: No cranial nerve deficit. Sensory: No sensory deficit. Motor: No weakness. Coordination: Coordination normal. Gait: Gait normal. Deep Tendon Reflexes: Reflexes normal. Psychiatric: Mood and Affect: Mood normal. Behavior: Behavior normal. Thought Content: Thought content normal. Assessment and Plan ASSESSMENT/PLAN: 1. Left flank pain - ICD9: 789.09, ICD10: R10.9 (primary diagnosis) Etiology unclear Differential Diagnosis includes Kidney stones/colic and Cystitis - Labs of CBC with Diff and CMP - Follow up in 3 days or sooner if worsening of symptoms - Discussed that renal calculi was a differential, but that express care was not able to perform the diagnostic Discussed red flags and reasons to seek ED> - UA DIP, URINE (POC) - URINE CULTURE - CBC + DIFF - COMP METABOLIC PANEL 2. Dysuria - ICD9: 788.1, ICD10: R30.0 acute - UA positive for henrik esterase, hematuria, and proteinuria - Send urine for culture - Begin treatment with Keflex for 7 days - Patient education for prevention given - CBC + DIFF - COMP METABOLIC PANEL Graciela Lazo APRN.CNP documented in this encounter [facility] 04-05-2022 Miscellaneous Notes The following approved medication requests have been transmitted electronically. Requested Prescriptions Pending Prescriptions Disp Refills lisinopril (ZESTRIL, PRINIVIL) 20 mg tablet [Pharmacy Med Name: LISINOPRIL 20 MG TABLET] 30 tablet 32 Sig: TAKE 1 TABLET BY MOUTH EVERY DAY Fernando Sanchez APRN.CNP documented in this encounter [facility] 02-10-2022 Miscellaneous Notes [employer] message sent to patient to inform. Kat Gonzalez Called patient, no answer. Left message. Mary Pink LPN Called patient on 's number. No answer. Left message. Mary Pink LPN Called patient on mobile number. No answer. Left message. Mary Pink LPN Called patient on mobile numver. No answer. Left message and made aware leaving message on MyChart. Mary Pink LPN ----- Message from Eric Corbett PA-C sent at 02/04/2022 4:49 PM EDT ----- No infection in the urine PARMINDER Anderson, SPRING GONZALEZ documented in this encounter [facility] 02-01-2022 History of Present illness Narrative Images from the original note were not included. PATIENT INFO: Joe Soler 66 year old ( ) REFERRING PROVIDER: Self PCP: Myesha Ramirez MD February 01, 2022 HPI: Joe Soler 66 year old male is here today for discussion and evaluation of recent kidney stones found and treated at local ER Imaging scanned into Epic 2 small< 6 mm stones on Left with mild hydronephrosis - age unknown, he was given Flomax to help pass these tiny stone He also had a UTI with E coli and will recheck urine culture today Over all he is doing well ,no flank pain and recommend he continue with Flomax to help pass any stones and gave him a strainer to try and catch a stone for analysis LUTS: Obstructive - weak stream: no, hesitancy: no, Intermittency: no, Double voiding no post-void dribbling: no incomplete emptying: no Irritative - NTF no Urgency no Frequency no Dysuria no Incontinence no Gross Hematuria yes Microscopic Hematuria no Other symptoms: LABS: No results found for: TESTOST No results found for: TESTFREE No results found for: PSA Hematocrit (%) Date Value 08/15/2013 45.7 MEDICATIONS: ibuprofen (MOTRIN ORAL) Take 200 mg by mouth every 6 hours as needed. lisinopril (ZESTRIL, PRINIVIL) 20 mg tablet Take 1 tablet by mouth once daily. atorvastatin (LIPITOR) 80 mg tablet Take 1 tablet by mouth daily at bedtime. aspirin 81 mg chewable tablet Take 1 tablet by mouth once daily. [START ON 02/08/2022] tamsulosin (FLOMAX) 0.4 mg Take 1 capsule by mouth daily at bedtime. lisinopril (ZESTRIL, PRINIVIL) 20 mg tablet Take 1 tablet by mouth once daily. atorvastatin (LIPITOR) 80 mg tablet Take 1 tablet by mouth once daily. PAST MEDICAL HISTORY: PAST MEDICAL HISTORY Diagnosis Date Colon polyps Essential hypertension 05/16/2020 Family history of malignant neoplasm of gastrointestinal tract Stroke (HCC) 04/2020 Tobacco use PAST SURGICAL HISTORY: PAST SURGICAL HISTORY Procedure Laterality Date COLONOSCOPY FLX DX W/COLLJ SPEC WHEN PFRMD 04/29/2013 Colonoscopy COLONOSCOPY FLX DX W/COLLJ SPEC WHEN PFRMD 12/17/2015 Colonoscopy COLONOSCOPY FLX DX W/COLLJ SPEC WHEN PFRMD 02/13/2017 Colonoscopy COLONOSCOPY FLX DX W/COLLJ SPEC WHEN PFRMD 04/19/2021 EYE SURGERY HX FRACTURE SURGERY HERNIA REPAIR HX LAPAROSCOPY SURG RPR INITIAL INGUINAL HERNIA 08/21/2013 BILAT RPR UMBILICAL HRNA 5 YRS/> REDUCIBLE 08/21/2013 SIGMOIDOSCOPY FLX DX W/COLLJ SPEC BR/WA IF PFRMD 06/12/2013 Sigmoidoscopy, flexible TONSILLECTOMY HX TONSILLECTOMY PRIMARY/SECONDARY <AGE 12 Tonsillectomy FAMILY HISTORY: FAMILY HISTORY Problem Relation Age of Onset Cancer Mother lung Stroke Father Colon Cancer Father Diagnosed at 79 Cancer Sister pancreatic Diabetes Maternal Grandfather other (leukemia) Son ALL SOCIAL HISTORY: Social Connections: Not on file REVIEW OF SYSTEMS: GENERAL: No fever, chills, weight loss, or fatigue. ENMT: Negative CARDIOVASCULAR:NO CHEST PAIN, PALPITATIONS, ANKLE EDEMA RESPIRATORY: No chronic cough, wheezing, dyspnea, hemoptysis. GENITOURINARY: SEE HPI MUSCULOSKELETAL:NO CHRONIC BACK PAIN, ARTHRITIS, CHRONIC NECK PAIN SKIN: NO VARICOSE VEINS, RASH, ABNORMAL ITCHING HEME/LYMPH/IMMUNE:Negative for prolonged bleeding, bruising easily or swollen nodes NEUROLOGICAL: NO HEADACHES, NUMBNESS, SEIZURES, STROKE DIABETES: No All other systems reviewed and are negative PHYSICAL EXAMINATION: Blood pressure 140/76, pulse 66, temperature 36.7 C (98 F), temperature source Temporal, resp. rate 14, height 180.3 cm (5' 11 ), weight 86.6 kg (191 lb), SpO2 96 %. GENERAL: WNL nutrition, no deformities, healthy appearing NEURO: Awake, alert and oriented x 3 and Normal gait PSYCH: No signs of depression, anxiety, or agitation ENMT (Ear, Nose, Mouth, Throat): No masses, adenopathy, icterus. Thyroid nonpalpable RESP: NL effort, no retractions or purse-lip breathing. CV: No extremity swelling, varices, edema, pallor, erythema GASTROINTESTINAL: Soft, nontender, nondistended, no masses. HERNIAS: None SKIN: No rash, lesions No palpable lymphadenopathy MUSCULOSKELETAL: Extremities normal. No deformities, edema, clubbing or skin discoloration. PROBLEM LIST REVIEW: Yes LABS: Results for orders placed or performed in visit on 02/01/22 UA DIP, URINE (POC) Result Value Ref Range GLUCOSE UA (POCT) Negative Negative mg/dL BILIRUBIN UA (POCT) Negative Negative KETONE UA (POCT) Negative Negative mg/dL SPECIFIC GRAVITY UA (POCT) 1.020 1.005 - 1.030 HEMOGLOBIN/BLOOD UA (POCT) Large (A) Negative PH UA (POCT) 5.5 4.5 - 8.0 PROTEIN UA (POCT) 30 (A) Negative mg/dL UROBILINOGEN UA (POCT) 0.2 Normal E.U./dL NITRITE UA (POCT) Negative Negative LEUKOCYTES UA (POCT) Negative Negative COLOR UA (POCT) Dark yellow CLARITY UA (POCT) Slightly Cloudy Urine Culture: Pending PROCEDURES: PVR: 0 ml IMAGING: CT Flank 3.9 and 4.5 mm left renal stones Mild Hydronephrosis - age indeterminate IMPRESSION/PLAN: 1. Flank pain - history - UA DIP, URINE (POC) - POST VOID RESIDUAL 2. Renal stones - URINE CULTURE I spent a total of 30 minutes on the date of the service which included preparing to see the patient, face to face patient care, completing clinical documentation, obtaining and/or reviewing separately obtained history, performing a medically appropriate examination, counseling and educating the patient/family/caregiver, ordering medications, tests, or procedures, and care coordination. PARMINDER Anderson, [place], SPRING CC Post Void Residual HPI: Joe Soler is a 66 year old male. The patient is here now for an appointment with PARMINDER Anderson, [place], PA-COV. Procedure: Explained procedure to patient and verbalizes understanding. Performed a PVR. Patient urinated and instructed to empty bladder as much as possible just prior to having PVR done using bladder ultrasound scanner. Results of scan: 0 mL The patient tolerated the procedure well. Plan: Appointment with Eric. documented in this encounter [facility] 01-24-2022 Miscellaneous Notes Noted Myesha Ramirez MD Protocol recommends ER now. and patient agreeable, and are driving there now. Reason for Disposition [1] SEVERE pain (e.g., excruciating) AND [2] present > 1 hour Answer Assessment - Initial Assessment Questions 1. LOCATION: [place] pain for about 2 hours. is driving patient to ER as we speak. 2. RADIATION: No 3. ONSET: 2 hours ago 4. SUDDEN: Sudden 5. PATTERN Contstant. 6. SEVERITY Severe- doubled over 7. RECURRENT SYMPTOM: Never 8. CAUSE: No idea 9. RELIEVING/AGGRAVATING FACTORS: Bumps (they are in the car driving). Patient sounds like he is in a lot of pain. 10. OTHER SYMPTOMS Vomited once and feels like will vomit again. Reports he is sweating and the A/C is on. Protocols used: ABDOMINAL PAIN - [id number] documented in this encounter [facility] 11-24-2021 Miscellaneous Notes The following approved medication requests have been transmitted electronically. Signed Prescriptions Disp Refills lisinopril (ZESTRIL, PRINIVIL) 20 mg tablet 30 tablet 2 Sig: Take 1 tablet by mouth once daily. Authorizing Provider: MYESHA RAMIREZ atorvastatin (LIPITOR) 80 mg tablet 30 tablet 2 Sig: Take 1 tablet by mouth once daily. Authorizing Provider: MYESHA RAMIREZ Ma OK to refill as ordered Myesha Ramirez MD Pt out of medication, requesting 30 day supply to be sent to [facility] until mail away arrives. Jovani Yang LPN documented in this encounter [facility] 11-24-2021 Miscellaneous Notes OK to refill as ordered Myesha Ramirez MD Patient phones requesting refills as follows: Pending Prescriptions Disp Refills LISINOPRIL 20 MG TABLET 90 tablet 3 Sig: Take 1 tablet by mouth once daily. TRINITY: No ATORVASTATIN 80 MG TABLET 90 tablet 3 Sig: Take 1 tablet by mouth daily at bedtime. TRINITY: No RX(s) sent on 10/18/21 were sent to [facility]. RX(s) need to be sent to mail away pharmacy. Please review and advise. Jovani Yang LPN documented in this encounter [facility] 10-18-2021 Instructions Fernando Sanchez APRN.[facility] - 10/18/2021 7:01 AM EDT 1. Get blood work done to check cholesterol and other labs 2. Reconsider getting your COVID vaccine to protect yourself and others in the community 3. Follow up in 6 months, sooner if needed. 4. I would recommend considering stopping smoking. Please let me know if you need help. Fernando Sanchez APRN.CNP documented in this encounter [facility] 10-18-2021 History of Present illness Narrative Chief Complaint Patient presents with: Medication Follow-up HPI Joe Soler is a 66 year old male who presents here today for Chronic Medical Conditions.. Here for medication follow up. Did not get blood work completed prior to today's visit. Had recent cardiology follow up for dilated aortic root. Imaging stable. He will be following them yearly. He is on Aspirin 81 mg. HYPERLIPIDEMIA: Patient is taking medications: Yes. Patient is watching diet: Yes. Patient denies myalgias: Yes. Patient denies gi upset: Yes HTN: Patient is compliant with meds Yes Monitors bp at home: Occasionally. Denies side effects: Yes. Chest pain: No. Dyspnea: No. Edema: No. Palpitations: No. Syncope: No. Headache: No. Dizziness: No. Past medical history, appointments, medications, allergies reviewed. Previous Medical History PAST MEDICAL HISTORY Diagnosis Date Colon polyps Essential hypertension 05/16/2020 Family history of malignant neoplasm of gastrointestinal tract Stroke (HCC) 04/2020 Tobacco use Previous Surgical History PAST SURGICAL HISTORY Procedure Laterality Date COLONOSCOPY FLX DX W/COLLJ SPEC WHEN PFRMD 04/29/2013 Colonoscopy COLONOSCOPY FLX DX W/COLLJ SPEC WHEN PFRMD 12/17/2015 Colonoscopy COLONOSCOPY FLX DX W/COLLJ SPEC WHEN PFRMD 02/13/2017 Colonoscopy COLONOSCOPY FLX DX W/COLLJ SPEC WHEN PFRMD 04/19/2021 EYE SURGERY HX FRACTURE SURGERY HERNIA REPAIR HX LAPAROSCOPY SURG RPR INITIAL INGUINAL HERNIA 08/21/2013 BILAT RPR UMBILICAL HRNA 5 YRS/> REDUCIBLE 08/21/2013 SIGMOIDOSCOPY FLX DX W/COLLJ SPEC BR/WA IF PFRMD 06/12/2013 Sigmoidoscopy, flexible TONSILLECTOMY HX TONSILLECTOMY PRIMARY/SECONDARY <AGE 12 Tonsillectomy Family History FAMILY HISTORY Problem Relation Age of Onset Cancer Mother lung Stroke Father Colon Cancer Father Diagnosed at 79 Cancer Sister pancreatic Diabetes Maternal Grandfather other (leukemia) Son ALL Patient Allergies ALLERGIES No Known Allergies Current Medications Current Outpatient Medications on File Prior to Visit Medication Sig atorvastatin (LIPITOR) 80 mg tablet Take 1 tablet by mouth daily at bedtime. lisinopril (ZESTRIL, PRINIVIL) 20 mg tablet Take 1 tablet by mouth once daily. aspirin 81 mg chewable tablet Take 1 tablet by mouth once daily. Current Facility-Administered Medications on File Prior to Visit Medication Social History Social History Tobacco Use Smoking status: Current Every Day Smoker Packs/day: 0.50 Years: 45.00 Pack years: 22.50 Types: Cigarettes Smokeless tobacco: Former User Vaping Use Vaping Use: Never used Substance Use Topics Alcohol use: Yes Alcohol/week: 1.0 standard drink Types: 1 Cans of beer per week Comment: beer one a day 12 oz Drug use: No REVIEW OF SYSTEMS: as above Reviewed relevant PMHx, PSHx, Social Hx, current medications and allergies. EXAM: BP 136/82 (BP Site: Left Arm) Pulse 72 Temp 36.4 C (97.5 F) (Left Tympanic) Resp 16 Wt 88.5 kg (195 lb) BMI 27.58 kg/m General Appearance: Well appearing, alert, in no acute distress, well-hydrated, well nourished.. Lungs: Lungs have mild rhonchi in the bases. No wheezing, rales.. Heart: RRR without murmur, gallop, or rubs. No ectopy. Abdomen: Normal abdominal exam, Abdomen soft, non-tender. Bowel sounds normal. No masses, organomegaly. Extremities: No deformities, edema Health Maintenance List COVID-19 VACCINE(1) Never done HIV SCREENING Never done BP CONTROLLED (<130/80) Never done SHINGRIX VACCINE(1 of 2) Never done PROSTATE CANCER SCREENING DISCUSSION due on 02/20/2015 DTAP,TDAP,TD(2 - Td or Tdap) due on 08/07/2019 INFLUENZA(1) due on 03/31/2021 ANNUAL PCP TEAM CHRONIC DISEASE VISIT due on 01/25/2022 DEPRESSION SCREENING due on 08/11/2022 DIABETES SCREEN due on 01/21/2024 LIPID SCREEN due on 01/20/2026 COLORECTAL CANCER SCREENING due on 04/19/2026 ONE PNEUMOVAX PRIOR TO AGE 65 Addressed HEPATITIS C SCREENING Addressed MENINGOCOCCAL CONJUGATE Aged Out Data reviewed None recent ASSESSMENT/PLAN: 1. Essential hypertension - ICD9: 401.9, ICD10: I10 (primary diagnosis) - good control - Continue current medication(s) - Recommended regular aerobic exercise. - Recommend home blood pressure monitoring, to bring results in on next visit - Goal of BP <130/80 - LISINOPRIL 20 MG TABLET 2. Dyslipidemia - ICD9: 272.4, ICD10: E78.5 - to be determined upon return of lab results - Continue current medication. - Encouraged following a low fat, low cholesterol diet. - Discussed the benefits of regular aerobic exercise and weight loss. - ATORVASTATIN 80 MG TABLET 3. Dilated aortic root (HCC) - ICD9: 447.71, ICD10: I77.810 - Continue follow up with cardiology. Fernando Sanchez APRN.CNP RTO in 6 months, sooner if needed. This note was partly generated using kontoblick voice recognition dictation and may contain some misspelled or inaccurate words missed on review. documented in this encounter [facility] documented as of this encounter (statuses as of 10/18/2021) [facility] History of Past illness Narrative* Problem Noted Date Resolved Date Screening for colon cancer 04/19/202104/19 History of colonic polyps 12/17/20152015 documented as of this encounter (statuses as of 11/24/2021) [facility] History of Past illness Narrative* Problem Noted Date Resolved Date Screening for colon cancer 04/19/202104/19 History of colonic polyps 12/17/20152015 documented as of this encounter (statuses as of 11/24/2021) [facility] History of Past illness Narrative* Problem Noted Date Resolved Date Screening for colon cancer 04/19/202104/19 History of colonic polyps 12/17/20152015 documented as of this encounter (statuses as of 01/24/2022) [facility] History of Past illness Narrative* Problem Noted Date Resolved Date Screening for colon cancer 04/19/202104/19 History of colonic polyps 12/17/20152015 documented as of this encounter (statuses as of 02/01/2022) [facility] History of Past illness Narrative* Problem Noted Date Resolved Date Screening for colon cancer 04/19/202104/19 History of colonic polyps 12/17/20152015 documented as of this encounter (statuses as of 02/10/2022) [facility] History of Past illness Narrative* Problem Noted Date Resolved Date Screening for colon cancer 04/19/202104/19 History of colonic polyps 12/17/20152015 documented as of this encounter (statuses as of 04/05/2022) [facility] History of Past illness Narrative* Problem Noted Date Resolved Date Screening for colon cancer 04/19/202104/19 History of colonic polyps 12/17/20152015 documented as of this encounter (statuses as of 05/07/2022) [facility] History of Past illness Narrative* Problem Noted Date Resolved Date Screening for colon cancer 04/19/202104/19 History of colonic polyps 12/17/20152015 documented as of this encounter (statuses as of 05/08/2022) [facility] History of Past illness Narrative* Problem Noted Date Resolved Date Screening for colon cancer 04/19/202104/19 History of colonic polyps 12/17/20152015 documented as of this encounter (statuses as of 05/09/2022) [address]20-2021 History of Past illness Narrative* Problem Noted Date Resolved Date Screening for colon cancer 04/19/202104/19 History of colonic polyps 12/17/20152015 documented as of this encounter (statuses as of 05/10/2022) [facility] History of Past illness Narrative* Problem Noted Date Resolved Date Screening for colon cancer 04/19/202104/19 History of colonic polyps 12/17/20152015 documented as of this encounter (statuses as of 05/28/2022) [address]20-2021 History of Past illness Narrative* Problem Noted Date Resolved Date Screening for colon cancer 04/19/202104/19 History of colonic polyps 12/17/20152015 documented as of this encounter (statuses as of 07/11/2022) [address]20-2021 History of Past illness Narrative* Problem Noted Date Resolved Date Screening for colon cancer 04/19/202104/19 History of colonic polyps 12/17/20152015 documented as of this encounter (statuses as of 08/11/2022) [address]20-2021 History of Past illness Narrative* Problem Noted Date Resolved Date Screening for colon cancer 04/19/202104/19 History of colonic polyps 12/17/20152015 documented as of this encounter (statuses as of 08/12/2022) [address]20-2021 History of Past illness Narrative* Problem Noted Date Resolved Date Screening for colon cancer 04/19/202104/19 History of colonic polyps 12/17/20152015 documented as of this encounter (statuses as of 10/11/2022) [address]20-2021 History of Past illness Narrative* Problem Noted Date Resolved Date Screening for colon cancer 04/19/202104/19 History of colonic polyps 12/17/20152015 documented as of this encounter (statuses as of 10/14/2022) [address]20-2021 History of Past illness Narrative* Problem Noted Date Resolved Date Screening for colon cancer 04/19/202104/19 History of colonic polyps 12/17/20152015 documented as of this encounter (statuses as of 01/17/2023) [address]20-2021 History of Past illness Narrative* Problem Noted Date Diagnosed Date Resolved Date Screening for colon cancer 04/19/2021 0 04/19/2021 History of colonic polyps 12/17/2015 documented as of this encounter (statuses as of 03/30/2023) [address]20-2021 History of Past illness Narrative* Problem Noted Date Diagnosed Date Resolved Date Screening for colon cancer 04/19/2021 0 04/19/2021 History of colonic polyps 12/17/2015 documented as of this encounter (statuses as of 04/14/2023) [facility] History of Past illness Narrative* Problem Noted Date Diagnosed Date Resolved Date Screening for colon cancer 04/19/2021 0 04/19/2021 History of colonic polyps 12/17/2015 documented as of this encounter (statuses as of 04/14/2023) [facility] History of Past illness Narrative* Problem Noted Date Diagnosed Date Resolved Date Screening for colon cancer 04/19/2021 0 04/19/2021 History of colonic polyps 12/17/2015 documented as of this encounter (statuses as of 04/17/2023) [facility] Diagnosis Essential hypertension- Primary Unspecified essential hypertension Dyslipidemia Other and unspecified hyperlipidemia Dilated aortic root (HCC) Thoracic [facility] ectasia [facility] Essential hypertension Unspecified essential hypertension Dyslipidemia Other and unspecified hyperlipidemia [facility] Diagnosis Renal stones- Primary Calculus of kidney Flank pain Abdominal pain, unspecified site [facility] Left flank pain- Primary Abdominal pain, unspecified site Dysuria [facility] Diagnosis Flank pain- Primary Abdominal pain, unspecified site [facility] Diagnosis Renal calculi- Primary Calculus of kidney Microscopic hematuria Gross hematuria Left flank pain Abdominal pain, unspecified site Decreased GFR Nonspecific abnormal results of kidney function study [facility] Diagnosis Tobacco use- Primary Tobacco use disorder [facility] Hip pain- Primary Pain in joint, pelvic region and thigh Dilated aortic root (HCC) [facility]th[facility], unspecified [facility] Abnormal laboratory test- Primary Other abnormal clinical finding Rheumatoid arthritis involving both hands with positive rheumatoid factor (HCC) Bilateral hand pain Pain in limb documented in this encounter [facility] for referral (narrative)* Diagnostic Procedure Only (Routine) - Closed Specialty Diagnoses / Procedures Referred By Lidia lyons Referred To Contact XR IMAGING Diagnoses Hip pain Procedures XR HIP BILATERAL 5V PEL/AP/LAT EACH HIP RADEX HIPS BILATERAL WITH PELVIS MINIMUM 5 VIEWS Myesha Ramirez MD [address] [place] [address] Xr Imaging Referral ID Status Reason Start Date Expiration Date V isits Requested Visits Authorized [id number] Closed Auto-Generate d Referral 10/11/2022 11/10/2023 1 1 [facility] for referral (narrative)* Diagnostic Procedure Only (Routine) - Pending Review Specialty Diagnoses / Procedures Referred By Contac t Referred To Contact XR IMAGING Diagnoses Rheumatoid arthritis involving both hands with positive rheumatoid factor (HCC) Bilateral hand pain Procedures XR HAND GENERAL 3V PA/LAT/OBL BILATERAL RADEX HAND MINIMUM 3 [place] [id number] [id number] [place] [address] Referral ID Status Reason Start Date Expiration Date Visits Requested Visits Authorized [id number] Pending Review Auto-Generat ed Referral 04/14/2023 05/13/2024 1 1 * Diagnostic Procedure Only (Routine) - Pending Review Specialty Diagnoses / Procedures Referred By Contac t Referred To Contact US IMAGING Diagnoses Rheumatoid arthritis involving both hands with positive rheumatoid factor (HCC) Bilateral hand pain Procedures US HAND/WRIST SYNOVIAL SCREEN LEFT US COMPL JOINT R-T W/[place] [address] [place] [address] [place] [address] Referral ID Status Reason Start Date Expiration Date Visits Requested Visits Authorized [id number] Pending Review Auto-Generat ed Referral 04/14/2023 05/13/2024 1 1 * Diagnostic Procedure Only (Routine) - Pending Review Specialty Diagnoses / Procedures Referred By Contac t Referred To Contact US IMAGING Diagnoses Rheumatoid arthritis involving both hands with positive rheumatoid factor (HCC) Bilateral hand pain Procedures US HAND/WRIST SYNOVIAL SCREEN RIGHT US COMPL JOINT R-T W/[place] [address] [place] [address] [place] [address] Referral ID Status Reason Start Date Expiration Date Visits Requested Visits Authorized [id number] Pending Review Auto-Generat ed Referral 04/14/2023 05/13/2024 1 1 [facility] Summary Purpose Family History No Family History Records FoundNo Family History Records FoundNo Family History Records FoundNo Family History Records FoundNo Family History Records FoundNo Family History Records Found Advance Directives No Advanced Directives Records FoundDocuments on File Type Date Recorded Patient Organ Pipe [employer] Advance Directive(s) 04/19/2021 7:46 AM Advance Directive(s) 05/15/2020 4:02 PM Advance Directive(s) 05/15/2020 4:03 PM Advance Directive(s) 02/13/2017 11:51 AM Advance Directive(s) 12/17/2015 12:16 PM Advance Directive(s) 12/01/2015 3:49 PM Hospital Course Note HNO ID: [id number] Author: Ricky Nair Service: General Internal Medicine Author Type: Physician Type: Discharge Summary Filed: 05/22/2020 11:24 PM Note Text: DISCHARGE SUMMARY PATIENT NAME: Joe Soler ADMISSION DATE: 05/15/2020 DISCHARGE DATE: 05/17/2020 Attending Physician: Angely Nair Code Status: Not on file Highest Readmission Risk Score: 5 The 30 day readmissions risk score is derived from an internally validated risk model which evaluates patient level characteristics, utilization history, medication orders and lab results up until the day of discharge. Patients with a score of 40 or above are considered highest risk for readmission. Specific patient level drivers will be listed at the bottom of the summary. Reason for Hospitalization: Left sided weakness Diagnosis: Active Problems: TIA (transient ischemic attack) Essential hypertension Tobacco use Resolved Problems: Left sided weakness Hospital Course as Described to the Patient: You were admitt (more content not included)... Reason for Referral Specialty Diagnoses / Procedures Referred By Contac t Referred To Contact CT IMAGING Diagnoses Renal calculi Microscopic hematuria Gross hematuria Left flank pain Procedures CT ABD/PEL WO IVCON CT ABD & PELVIS W/O CONTRAST Fernando Sanchez APRN.MACHINE HAND [address] [place] [address] Ct Imaging Referral ID Status Reason Start Date Expiration Date Visits Requested Visits Authorized [id number] Authorized Auto-Generat ed Referral 2 06/09/2023 1 1 Additional Source Comments (unrecognized sect ion and content) No Status Records FoundNo Status Records FoundNo Status Records FoundNo Status Records FoundNo Status Records FoundNo Status Records Found INFORMATION SOURCE (unrecogn ized section and content) DATE CREATED AUTHOR AUTHOR'S ORGANIZ ATION 04/26/2018 [facility] DATE CREATED AUTHOR AUTHOR'S ORGANIZ ATION 05/19/2020 [facility] DATE CREATED AUTHOR AUTHOR'S ORGANIZ ATION 05/23/2020 [facility] DATE CREATED AUTHOR AUTHOR'S ORGANIZ ATION 06/26/2020 [facility] DATE CREATED AUTHOR AUTHOR'S ORGANIZ ATION 09/15/2023 [facility] Source Comments (unrecognize d section and content) In the event this informatio n is protected by the Federal Confidentiality of Alcohol and Drug Abuse Patient Records regulations: The Federal rules restrict any use of the information to criminally investigate or prosecute any alcohol or drug abuse patient.[facility] the event this information is protected by the Federal Confidentiality of Alcohol and Drug Abuse Patient Records regulations: The Federal rules restrict any use of the information to criminally investigate or prosecute any alcohol or drug abuse patient.[facility] the event this information is protected by the Federal Confidentiality of Alcohol and Drug Abuse Patient Records regulations: The Federal rules restrict any use of the information to criminally investigate or prosecute any alcohol or drug abuse patient.[facility] the event this information is protected by the Federal Confidentiality of Alcohol and Drug Abuse Patient Records regulations: The Federal rules restrict any use of the information to criminally investigate or prosecute any alcohol or drug abuse patient.[facility] Center[facility] the event this information is protected by the Federal Confidentiality of Alcohol and Drug Abuse Patient Records regulations: The Federal rules restrict any use of the information to criminally investigate or prosecute any alcohol or drug abuse patient.[facility] Center[facility] the event this information is protected by the Federal Confidentiality of Alcohol and Drug Abuse Patient Records regulations: The Federal rules restrict any use of the information to criminally investigate or prosecute any alcohol or drug abuse patient.[facility] Center[facility] the event this information is protected by the Federal Confidentiality of Alcohol and Drug Abuse Patient Records regulations: The Federal rules restrict any use of the information to criminally investigate or prosecute any alcohol or drug abuse patient.[facility] Center[facility] the event this information is protected by the Federal Confidentiality of Alcohol and Drug Abuse Patient Records regulations: The Federal rules restrict any use of the information to criminally investigate or prosecute any alcohol or drug abuse patient.[facility] Center[facility] the event this information is protected by the Federal Confidentiality of Alcohol and Drug Abuse Patient Records regulations: The Federal rules restrict any use of the information to criminally investigate or prosecute any alcohol or drug abuse patient.[facility] Center[facility] the event this information is protected by the Federal Confidentiality of Alcohol and Drug Abuse Patient Records regulations: The Federal rules restrict any use of the information to criminally investigate or prosecute any alcohol or drug abuse patient.[facility] Center[facility] the event this information is protected by the Federal Confidentiality of Alcohol and Drug Abuse Patient Records regulations: The Federal rules restrict any use of the information to criminally investigate or prosecute any alcohol or drug abuse patient.[facility] Center[facility] the event this information is protected by the Federal Confidentiality of Alcohol and Drug Abuse Patient Records regulations: The Federal rules restrict any use of the information to criminally investigate or prosecute any alcohol or drug abuse patient.[facility] Center[facility] the event this information is protected by the Federal Confidentiality of Alcohol and Drug Abuse Patient Records regulations: The Federal rules restrict any use of the information to criminally investigate or prosecute any alcohol or drug abuse patient.[facility] Center[facility] the event this information is protected by the Federal Confidentiality of Alcohol and Drug Abuse Patient Records regulations: The Federal rules restrict any use of the information to criminally investigate or prosecute any alcohol or drug abuse patient.[facility] Center[facility] the event this information is protected by the Federal Confidentiality of Alcohol and Drug Abuse Patient Records regulations: The Federal rules restrict any use of the information to criminally investigate or prosecute any alcohol or drug abuse patient.[facility] Center[facility] the event this information is protected by the Federal Confidentiality of Alcohol and Drug Abuse Patient Records regulations: The Federal rules restrict any use of the information to criminally investigate or prosecute any alcohol or drug abuse patient.[facility] Center[facility] the event this information is protected by the Federal Confidentiality of Alcohol and Drug Abuse Patient Records regulations: The Federal rules restrict any use of the information to criminally investigate or prosecute any alcohol or drug abuse patient.[facility] CenterIn the event this information is protected by the Federal Confidentiality of Alcohol and Drug Abuse Patient Records regulations: The Federal rules restrict any use of the information to criminally investigate or prosecute any alcohol or drug abuse patient.[facility] CenterIn the event this information is protected by the Federal Confidentiality of Alcohol and Drug Abuse Patient Records regulations: The Federal rules restrict any use of the information to criminally investigate or prosecute any alcohol or drug abuse patient.[facility] CenterIn the event this information is protected by the Federal Confidentiality of Alcohol and Drug Abuse Patient Records regulations: The Federal rules restrict any use of the information to criminally investigate or prosecute any alcohol or drug abuse patient.[facility] CenterIn the event this information is protected by the Federal Confidentiality of Alcohol and Drug Abuse Patient Records regulations: The Federal rules restrict any use of the information to criminally investigate or prosecute any alcohol or drug abuse patient.[facility] CenterIn the event this information is protected by the Federal Confidentiality of Alcohol and Drug Abuse Patient Records regulations: The Federal rules restrict any use of the information to criminally investigate or prosecute any alcohol or drug abuse patient.[facility] Reason for Visit (unrecogniz ed section and content) Reason Onset Date Comments Refill Request 11/23/2021 Reason Onset Date Comments Refill Request 11/24/2021 Reason Comments Abdominal Pain Reason Comments Consult Reason Comments Results Reason Comments Refill Request Reason Comments left flank apin Left flank pain-symp toms started last night Reason Comments Follow Up Urgent Care Visit d/ t difficulty urinating and abdominal pain Reason Onset Date Comments Refill Request 07/09/2022 Reason Comments Established Patient Lung Cancer screenin g Reason Comments Hip Pain Reason Onset Date Comments Refill Request 01/17/2023 Reason Onset Date Comments Refill Request 03/29/2023 Reason Comments New Patient Specialty Diagnoses / Procedures Referred By Lidia t Referred To Contact Rheumatology Diagnoses Rheumatoid arthritis involving both hands with positive rheumatoid factor (HCC) Procedures CONSULT TO RHEUM/IMMUN DISEASE OFFICE/OUTPATIENT NEW HIGH MDM 60-74 MINUTES Myesha Ramirez MD [address] [place] [address] Referral ID Status Reason Start Date Expiration Date V isits Requested Visits Authorized [id number] Closed PCP Requested Referral 12/22/2022 12/22/2023 1 1 Reason Comments Appointment Care Teams (unrecognized sec tion and content) Flare Maker Relationship Specialty Start Date End Date Myesha Ramirez MD [address] [place] [address] PCP - General 01/12/10 Flare Maker Relationship Specialty Start Date End Date Myesha Ramirez MD [address] [place] [address] PCP - General 01/12/10 Flare Maker Relationship Specialty Start Date End Date Myesha Ramirez MD [address] [place] [address] PCP - General 01/12/10 Flare Maker Relationship Specialty Start Date End Date Myesha Ramirez MD [address] [place] [address] PCP - General 01/12/10 Flare Maker Relationship Specialty Start Date End Date Myesha Ramirez MD [address] [place] [address] PCP - General 01/12/10 Flare Maker Relationship Specialty Start Date End Date Myesha Ramirez MD [address] [place] [address] PCP - General 01/12/10 Flare Maker Relationship Specialty Start Date End Date Myesha Raimrez MD [address] [place] [address] PCP - General 01/12/10 Flare Maker Relationship Specialty Start Date End Date Myesha Ramirez MD [address] [place] [address] PCP - General 01/12/10 Flare Maker Relationship Specialty Start Date End Date Myesha Ramirez MD [address] [place] [address] PCP - General 01/12/10 Flare Maker Relationship Specialty Start Date End Date Myesha Ramirez MD [address] [place] [address] PCP - General 01/12/10 Flare Maker Relationship Specialty Start Date End Date Myesha Ramirez MD [address] [place] [address] PCP - General 01/12/10 Flare Maker Relationship Specialty Start Date End Date Myesha Ramirez MD [address] [place], [place] [id number] PCP - General 01/12/10 Flare Maker Relationship Specialty Start Date End Date Myesha Ramirez MD [address] [place], [place] [id number] PCP - General 01/12/10 Flare Maker Relationship Specialty Start Date End Date Myesha Ramirez MD [address] [place] [address] PCP - General 01/12/10 FOR RECORDS PERTAINING TO PATIENTS WHO ARE OR HAVE BEEN ENROLLED IN A CHEMICAL DEPENDENCY/SUBSTANCEABUSE PROGRAM, SOME INFORMATION MAY BE OMITTED. This clinical summary was aggregated from multiple sources. Caution should be exercised in using it in the provision of clinical care. This summary normalizes information from multiple sources, and as a consequence, information in this document may materially change the coding, format and clinical context of patient data. In addition, data may be omitted in some cases. CLINICAL DECISIONS SHOULD BE BASED ON THE PRIMARY CLINICAL RECORDS. [facility] [employer] [facility]. provides no warranty or guarantee of the accuracy or completeness of information in this document.
== END 2023-09-16 16:24 | disposition home or self-care (01) ==
LOC: ED 16:22
PROVIDERS: Emergency Provider Emergency Medicine; PCP Family Medicine; Visit Provider Emergency Medicine
DX: J98.01 Acute bronchospasm (principal); J44.1 Chronic obstructive pulmonary disease with (acute) exacerbation; J44.0 Chronic obstructive pulmonary disease with (acute) lower respiratory infection; J40 Bronchitis, not specified as acute or chronic; N40.0 Benign prostatic hyperplasia without lower urinary tract symptoms; F17.210 Nicotine dependence, cigarettes, uncomplicated; Z79.82 Long term (current) use of aspirin; Z79.899 Other long term (current) drug therapy; Z86.73 Personal history of transient ischemic attack (TIA), and cerebral infarction without residual deficits
CPT/HCPCS: 71046; 94640; 99283